=== PATIENT | female | born 1935 | race Caucasian/White ===

== ENCOUNTER → 2017-11-05 15:06 | Outpatient (CLI) | payer MEDICARE, BC, SELFPAY | PROVIDERS: Family Provider Family Medicine Geriatric Medicine; PCP Family Medicine Geriatric Medicine; Visit Provider Family Medicine Geriatric Medicine | DX: R69 Illness, unspecified (principal) | CPT/HCPCS: 87633 ==

== ENCOUNTER → 2017-11-28 14:37 | Outpatient (CLI) | payer MEDICARE, BC, SELFPAY ==
[2017-11-28 17:03] LABS: Absolute Lymphocyte Count 0.84 X10^3/ul (0.83-4.51); Absolute Neutrophil Count 5.7 X10^3/uL (2.0-7.7); Basophil# 0.07 X10^3/uL; Basophil% 0.9 % (0-1); Eosinophil# 0.42 X10^3/uL; Eosinophils% 5.2 % (0-5); Hematocrit 33.2 % (37-47); Hemoglobin 10.6 g/dl (12.0-15.0); Lymphocyte # 0.84 X10^3/ul (4.0); Lymphocyte % 10.4 % (19-41); Mean Corp Hgb Conc 31.9 g/gl (32-36); Mean Platelet Vol. 10.8 fl (6.2-12.0); Monocyte# 0.87 X10^3/uL; Monocyte% 10.8 % (0-10); Neutrophil # 5.66 X10^3/uL (2.7-7.7); Neutrophil % 70.1 % (47-70); POSITIVE COUNT YES; POSITIVE DIFFERENTIAL NO; POSITIVE MORPHOLOGY YES; Platelet Count 428 K/mm3 (150-450); RBC Distribution Width CV 14.7 % (11.6-14.6); RBC Distribution Width SD 47.1 fl (35.1-43.9); Red Blood Count 3.65 M/mm3 (4.2-5.4); White Blood Count 8.1 K/mm3 (4.4-11.0)
[2017-11-28 17:33] LABS: ALB/GLOB Ratio 0.8 RATIO (0.9-2.4); AST(SGOT) 21 U/L (15-37); Alanine Aminotransfer ALT/SGPT 24 U/L (13-56); Alkaline Phosphatase 53 U/L (45-117); Anion Gap 8 (5-15); BUN 23 mg/dL (7-18); BUN/Creat Ratio 15.9 RATIO (10-20); Calcium,Total 9.3 mg/dL (8.5-10.1); Chloride 107 mmol/L (98-107); Creatinine, Serum 1.45 mg/dL (0.55-1.02); EST Glomerular Filtration Rate 37 mL/min (>60); Est Glom Filt Rate - Afr Amer 44 mL/min (>60); Globulin 3.9 g/dL (2.2-4.2); Glucose 112 mg/dL (74-106); Potassium 3.7 mmol/L (3.5-5.1); Protein, Total 6.9 g/dL (6.4-8.2); Sodium Level 142 mmol/L (136-145); Thyroid Stim Hormone (TSH) 1.19 uIU/mL (0.358-3.74)
[2017-11-28 17:55] LABS: Vitamin D,25 Hydroxy 29.4 ng/mL (29.95-100.01)
[2017-11-29 12:37] LABS: Pathologist Review Reviewed
== END ==
PROVIDERS: Family Provider Family Medicine Geriatric Medicine; PCP Family Medicine Geriatric Medicine; Visit Provider Family Medicine Geriatric Medicine
DX: I10 Essential (primary) hypertension (principal); E55.9 Vitamin D deficiency, unspecified
CPT/HCPCS: 36415; 80053; 82306; 84443; 85025

== ENCOUNTER → 2017-12-05 11:25 | Outpatient (CLI) | payer MEDICARE, BC, SELFPAY ==
[2017-12-05 13:31] LABS: Iron 47 ug/dL (50-170); Iron Binding Capacity,Total 382 ug/dL (250-450)
== END ==
PROVIDERS: Family Provider Family Medicine Geriatric Medicine; PCP Family Medicine Geriatric Medicine; Visit Provider Family Medicine Geriatric Medicine
DX: D64.9 Anemia, unspecified (principal)
CPT/HCPCS: 36415; 83540; 83550

== ENCOUNTER → 2017-12-28 11:19 | Outpatient (CLI) | payer MEDICARE, BC, SELFPAY ==
--- NOTE | 2017-12-28 11:19 | DT_ITS ---
This patient was seen during an EMR downtime December 24, 2017 - December 31, 2017. This patient may have a combination of paper and electronic documentation or all paper documentation. All documentation is viewable within the e-chart portion of [employer] for each patient visit.
[2017-12-28 15:07] LABS: White Blood Count 6.2 K/mm3 (4.4-11.0)
[2017-12-28 15:08] LABS: Absolute Lymphocyte Count 1.15 X10^3/ul (0.83-4.51); Absolute Neutrophil Count 4.1 X10^3/uL (2.0-7.7); Basophil# 0.04 X10^3/uL; Basophil% 0.6 % (0-1); Eosinophil# 0.17 X10^3/uL; Eosinophils% 2.7 % (0-5); Hematocrit 37.3 % (37-47); Hemoglobin 11.9 g/dl (12.0-15.0); Lymphocyte # 1.15 X10^3/ul (4.0); Lymphocyte % 18.4 % (19-41); Mean Corp Hgb Conc 31.9 g/gl (32-36); Mean Corpuscular Hgb 30.3 pg (27.0-32.0); Mean Corpuscular Volume 94.9 fL (81-99); Mean Platelet Vol. 11.3 fl (6.2-12.0); Monocyte# 0.74 X10^3/uL; Monocyte% 11.9 % (0-10); Neutrophil % 65.8 % (47-70); POSITIVE COUNT NO; POSITIVE DIFFERENTIAL NO; POSITIVE MORPHOLOGY NO; Platelet Count 265 K/mm3 (150-450); RBC Distribution Width SD 53.8 fl (35.1-43.9); Red Blood Count 3.93 M/mm3 (4.2-5.4)
[2017-12-28 15:40] LABS: Iron 109 ug/dL (50-170); Iron Binding Capacity,Total 406 ug/dL (250-450)
== END ==
PROVIDERS: Family Provider Family Medicine Geriatric Medicine; PCP Family Medicine Geriatric Medicine; Visit Provider Family Medicine Geriatric Medicine
DX: D50.9 Iron deficiency anemia, unspecified (principal)
CPT/HCPCS: 36415; 83540; 83550; 85025

== ENCOUNTER → 2017-12-31 16:23 | Outpatient (CLI) | payer MEDICARE, BC, SELFPAY ==
--- NOTE | 2017-12-31 12:30 | COLBX_PTH ---
PATIENT: TANMAY AGUILLON [facility] U#:[id number] AGE/SX: 89/F ROOM: RE12/31/[address]: Dr. Beck Lawrence MD : 1935 BED: DIS: SPEC #: [id number] RECD: 12/31/17 15:24 STATUS: JW JANEL #: [id number] NAOMIE: 12/31/17 12:[address]: Beck Lawrence DEPT: SURGICAL PATHOLOGY RECD BY: Eduin Mata ENTERED: 01/01/18 08:16 SP TYPE: COLON BX OTHR DR: Dr. Matheus Morales MD [facility] Tissues: A - Right colon B - Descending colon Procedures: Surgery Specimen Level IV HEADER OPERATION: Colonoscopy with biopsies PRE-OP DIAGNOSIS: Iron deficiency anemia, history of polyps TISSUE SUBMITTED: A ? Right colon biopsy, rule out adenoma, B ? Descending colon biopsy, rule out adenoma MICROSCOPIC DIAGNOSIS A. Right colon, biopsy: Tubular adenoma. B. Descending colon, biopsy: Fragments of tubular adenoma. HERMINIO:abby 01/02/18 MICROSCOPIC DESCRIPTION Slides are reviewed. GROSS DESCRIPTION A - Received in fixative is one container labeled with the patient's name and designated right colon biopsy. The specimen consists of two irregular fragments of light santoyo soft tissue that in aggregate measure 0.3 x 0.3 x 0.1 cm. The specimen is totally submitted in one cassette. B - Received in fixative is one container labeled with the patient's name and designated descending colon biopsy. The specimen consists of multiple irregular fragments of light santoyo soft tissue that in aggregate measure 0.6 x 0.2 x 0.1 cm. The specimen is totally submitted in one cassette. / HERMINIO:abby 01/01/18 TC:1 CPT: 24087 x2
--- NOTE | 2017-12-31 16:23 | DT_ITS ---
This patient was seen during an EMR downtime December 24, 2017 - December 31, 2017. This patient may have a combination of paper and electronic documentation or all paper documentation. All documentation is viewable within the e-chart portion of [employer] for each patient visit.
== END ==
PROVIDERS: Family Provider Family Medicine Geriatric Medicine; PCP Family Medicine Geriatric Medicine; Visit Provider Internal Medicine Gastroenterology
DX: D50.9 Iron deficiency anemia, unspecified (principal); Z86.010 Personal history of colon polyps
CPT/HCPCS: 88305

== ENCOUNTER → 2018-05-23 11:09 | Outpatient (CLI) | payer MEDICARE, BC, SELFPAY ==
[2018-05-23 12:43] LABS: Absolute Lymphocyte Count 0.72 X10^3/ul (0.83-4.51); Basophil# 0.03 X10^3/uL; Basophil% 0.5 % (0-1); Eosinophil# 0.12 X10^3/uL; Eosinophils% 2.2 % (0-5); Hematocrit 37.7 % (37-47); Hemoglobin 12.3 g/dl (12.0-15.0); Lymphocyte # 0.72 X10^3/ul (4.0); Mean Corp Hgb Conc 32.6 g/gl (32-36); Mean Corpuscular Hgb 31.3 pg (27.0-32.0); Mean Corpuscular Volume 95.9 fL (81-99); Mean Platelet Vol. 11.5 fl (6.2-12.0); Monocyte% 10.8 % (0-10); Neutrophil # 4.04 X10^3/uL (2.7-7.7); Platelet Count 274 K/mm3 (150-450); RBC Distribution Width CV 13.8 % (11.6-14.6); RBC Distribution Width SD 47.1 fl (35.1-43.9); Red Blood Count 3.93 M/mm3 (4.2-5.4); White Blood Count 5.5 K/mm3 (4.4-11.0)
[2018-05-23 12:45] LABS: POSITIVE COUNT NO; POSITIVE DIFFERENTIAL NO; POSITIVE MORPHOLOGY NO
[2018-05-23 13:02] LABS: ALB/GLOB Ratio 1.1 RATIO (0.9-2.4); AST(SGOT) 18 U/L (15-37); Alanine Aminotransfer ALT/SGPT 27 U/L (13-56); Albumin, Serum 3.4 g/dL (3.2-5.0); Alkaline Phosphatase 41 U/L (45-117); Anion Gap 8 (5-15); BUN 27 mg/dL (7-18); BUN/Creat Ratio 20.9 RATIO (10-20); Calcium,Total 8.8 mg/dL (8.5-10.1); Chloride 108 mmol/L (98-107); Cholesterol 201 mg/dL (200); Creatinine, Serum 1.29 mg/dL (0.55-1.02); EST Glomerular Filtration Rate 42 mL/min (>60); Est Glom Filt Rate - Afr Amer 51 mL/min (>60); Globulin 3.2 g/dL (2.2-4.2); Glucose 78 mg/dL (74-106); High Density Lipoprotein 65 mg/dL; Potassium 3.8 mmol/L (3.5-5.1); Protein, Total 6.6 g/dL (6.4-8.2); Sodium Level 145 mmol/L (136-145); Thyroid Stim Hormone (TSH) 1.09 uIU/mL (0.358-3.74); Triglycerides 138 mg/dL; Very Low Density Lipoprotein 28 mg/dL (5-40)
[2018-05-23 13:03] LABS: Vitamin D,25 Hydroxy 24.6 ng/mL (29.95-100.01)
== END ==
PROVIDERS: Family Provider Family Medicine Geriatric Medicine; PCP Family Medicine Geriatric Medicine; Visit Provider Family Medicine Geriatric Medicine
DX: I10 Essential (primary) hypertension (principal); E78.49 Other hyperlipidemia; E55.9 Vitamin D deficiency, unspecified
CPT/HCPCS: 36415; 80053; 80061; 82306; 84443; 85025

== ENCOUNTER → 2018-06-21 11:06 | Outpatient (CLI) | payer MEDICARE, BC, SELFPAY ==
[2018-06-21 12:24] LABS: Absolute Lymphocyte Count 0.99 X10^3/ul (0.83-4.51); Absolute Neutrophil Count 3.1 X10^3/uL (2.0-7.7); Basophil# 0.03 X10^3/uL; Basophil% 0.6 % (0-1); Eosinophil# 0.13 X10^3/uL; Eosinophils% 2.7 % (0-5); Hematocrit 36.1 % (37-47); Hemoglobin 11.9 g/dl (12.0-15.0); Lymphocyte # 0.99 X10^3/ul (4.0); Lymphocyte % 20.3 % (19-41); Mean Corpuscular Hgb 31.2 pg (27.0-32.0); Mean Corpuscular Volume 94.8 fL (81-99); Mean Platelet Vol. 11.9 fl (6.2-12.0); Monocyte% 12.3 % (0-10); Neutrophil % 63.5 % (47-70); Platelet Count 263 K/mm3 (150-450); RBC Distribution Width CV 13.4 % (11.6-14.6); RBC Distribution Width SD 44.8 fl (35.1-43.9); Red Blood Count 3.81 M/mm3 (4.2-5.4); White Blood Count 4.9 K/mm3 (4.4-11.0)
[2018-06-21 12:28] LABS: POSITIVE COUNT NO; POSITIVE DIFFERENTIAL NO; POSITIVE MORPHOLOGY NO
[2018-06-21 12:32] LABS: Vitamin D,25 Hydroxy 30.4 ng/mL (29.95-100.01)
[2018-06-21 12:39] LABS: ALB/GLOB Ratio 1.2 RATIO (0.9-2.4); AST(SGOT) 16 U/L (15-37); Alanine Aminotransfer ALT/SGPT 18 U/L (13-56); Albumin, Serum 3.4 g/dL (3.2-5.0); Alkaline Phosphatase 38 U/L (45-117); Anion Gap 8 (5-15); BUN 29 mg/dL (7-18); BUN/Creat Ratio 22.1 RATIO (10-20); Calcium,Total 8.9 mg/dL (8.5-10.1); Chloride 107 mmol/L (98-107); Creatinine, Serum 1.31 mg/dL (0.55-1.02); EST Glomerular Filtration Rate 41 mL/min (>60); Est Glom Filt Rate - Afr Amer 50 mL/min (>60); Globulin 2.8 g/dL (2.2-4.2); Glucose 91 mg/dL (74-106); Potassium 3.9 mmol/L (3.5-5.1); Protein, Total 6.2 g/dL (6.4-8.2); Sodium Level 142 mmol/L (136-145); Thyroid Stim Hormone (TSH) 1.44 uIU/mL (0.358-3.74)
--- OUTSIDE RECORDS SUMMARY | 2018-08-16 09:09 | XMS RPT_ITS ---
:1935 Author Organization OHIP Care Team Providers Name Role Phone Andrew, Matheus Chi Attending Unavailable Andrew, Matheus Chi Primary Care Unavailable Andrew, Matheus Chi Attending Unavailable Andrew, Matheus Chi Primary Care Unavailable Andrew, Matheus Chi Attending Unavailable Andrew, Matheus Chi Primary Care Unavailable Andrew, Matheus Chi Attending Unavailable Andrew, Matheus Chi Primary Care Unavailable Andrew, Matheus Chi Attending Unavailable Andrew, Matheus Chi Referring Unavailable Andrew, Matheus Chi Primary Care Unavailable Beck Lawrence Attending Unavailable Andrew, Matheus Chi Primary Care Unavailable Beck Lawrence Referring Unavailable Andrew, Matheus Chi Attending Unavailable Andrew, Matheus Chi Primary Care Unavailable Andrew, Matheus Chi Attending Unavailable Andrew, Matheus Chi Primary Care Unavailable Andrew, Matheus Chi Attending Unavailable Andrew, Matheus Chi Primary Care Unavailable PROBLEMS PROBLEMS DATE TYPE CONDITION / CODE ATTENDING STATUS SOURCE 01/16/2018 Unknown 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, 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 [facility], [facility], Hospital unspecified / Repository D50.9(ICD-10) PROCEDURES PROCEDURES No Procedure Records FoundRESULTS RESULTS CBC W/DIFF, AUTOMATED Collected: 06/21/2018 Status: F Source: [place] 11:10 AM [facility] REPOSITORY TYPE CODE TESTS RESULT OUT OF RANGE REFERENCE UNITS LAB L100.1000 4.4-11.0 K/mm3 Normal WBC 4.9 LAB L100.1200 4.2-5.4 M/mm3 Low RBC 3.81 LAB L100.1300 12.0-15.0 g/dl Low HGB 11.9 LAB L100.1400 37-47 % Low HCT 36.1 LAB L100.1500 81-99 fL Normal MCV 94.8 LAB L100.1600 27.0-32.0 pg Normal MCH 31.2 LAB L100.1700 32-36 g/gl Normal MCHC 33.0 LAB L100.1810 11.6-14.6 % Normal RDW CV 13.4 LAB L100.1820 35.1-43.9 fl High RDW SD 44.8 LAB L100.1900 150-450 K/mm3 Normal PLT 263 LAB L100.2000 6.2-12.0 fl Normal MPV 11.9 LAB L100.2100 47-70 % Normal NEUT% 63.5 LAB L100.2200 19-41 % Normal LY% 20.3 LAB L100.2300 0-10 % High MONO% 12.3 LAB L100.2400 0-5 % Normal EO% 2.7 LAB L100.2500 0-1 % Normal BASO% 0.6 LAB L100.2550 0.0-0.9 % Normal IM GRAN % 0.600 Result Comment: IG% - Immature Granulocytes (promyelocytes, myelocytes and metamyelocytes) > 1% indicates that a LEFT SHIFT is Present. LAB L100.2620 2.0-7.7 X10 3/uL Normal Absolute Neut 3.1 LAB L100.2720 0.83-4.51 X10 3/ul Normal Absolute Lymph 0.99 Performed By: #### L100.0100 #### [facility] [address] [place], [address] VITAMIN D,25 HYDROXY Collected: 06/21/2018 Status: F Source: [place] 11:10 AM [facility] REPOSITORY TYPE CODE TESTS RESULT OUT OF RANGE REFERENCE UNITS LAB L506.1000 29.95-100.01 ng/mL Normal Vitamin D 30.4 25-OH Result Comment: Vitamin D 25(OH) Status Range Deficiency <20 ng/mL (50nmol/L) Insuffciency 20 - 30 ng/mL (50 - 75 nmol/L) Sufficiency 30 - 100 ng/mL (75 - 250 nmol/L) Toxicity >100 ng/mL (>250 nmol/L) Performed By: #### L506.1000 #### [facility] [address] [facility] [place], [address] COMPREHENSIVE METABOLIC Collected: 06/21/2018 Status: F [facility] REPOSITORY TYPE CODE TESTS RESULT OUT OF RANGE REFERENCE UNITS LAB L501.0100 74-106 mg/dL Normal GLU 91 Result Comment: Please note revised GLUCOSE reference range effective 2017. LAB L501.1000 7-18 mg/dL High BUN 29 LAB L501.1100 0.55-1.02 mg/dL High CREAT,SERUM 1.31 Result Comment: The validity of the calculated GFR AND GFRAA in patients over 70 years has not been determined. Clinical correlation is essential. LAB L501.1110 >60 mL/min Low EST GFR 41 Result Comment: Non- GFR Calc LAB L501.1115 >60 mL/min Low EST GFR - AA 50 Result Comment: GFR Calc LAB L501.1300 10-20 RATIO High BUN/CRE 22.1 LAB L501.1500 6.4-8.2 g/dL Low T PROT 6.2 LAB L501.1800 3.2-5.0 g/dL Normal ALB 3.4 LAB L501.1950 2.2-4.2 g/dL Normal GLOB 2.8 LAB L501.2000 0.9-2.4 RATIO Normal A/G 1.2 LAB L501.2200 8.5-10.1 mg/dL CA Normal 8.9 LAB L501.4100 15-37 U/L Normal AST 16 LAB L501.4305 45-117 U/L Low ALK P 38 LAB L501.4405 13-56 U/L Normal ALT 18 LAB L501.4600 0.20-1.00 mg/dL T Normal BILI 0.40 LAB L501.5300 136-145 mmol/L NA Normal 142 LAB L501.5600 3.5-5.1 mmol/L K Normal 3.9 LAB L501.5900 98-107 mmol/L CL Normal 107 LAB L501.6100 21.0-32.0 mmol/L Normal CO2 27.0 LAB L501.6200 5-15 Normal GAP 8 Performed By: #### L500.4050, L501.9520 #### [facility] [address] [place], [place], [address] THYROID STIM HORMONE Collected: 06/21/2018 Status: F Source: [place] (TSH) 11:10 AM [facility] REPOSITORY TYPE CODE TESTS RESULT OUT OF RANGE REFERENCE UNITS LAB L501.9520 0.358-3.74 uIU/mL Normal TSH 1.44 Performed By: #### L500.4050, L501.9520 #### [facility] [address] [place], [address] CBC W/DIFF, AUTOMATED Collected: 05/23/2018 Status: F Source: [place] 11:10 AM [facility] REPOSITORY TYPE CODE TESTS RESULT OUT OF RANGE REFERENCE UNITS LAB L100.1000 4.4-11.0 K/mm3 Normal WBC 5.5 LAB L100.1200 4.2-5.4 M/mm3 Low RBC 3.93 LAB L100.1300 12.0-15.0 g/dl Normal HGB 12.3 LAB L100.1400 37-47 % Normal HCT 37.7 LAB L100.1500 81-99 fL Normal MCV 95.9 LAB L100.1600 27.0-32.0 pg Normal MCH 31.3 LAB L100.1700 32-36 g/gl Normal MCHC 32.6 LAB L100.1810 11.6-14.6 % Normal RDW CV 13.8 LAB L100.1820 35.1-43.9 fl High RDW SD 47.1 LAB L100.1900 150-450 K/mm3 Normal PLT 274 LAB L100.2000 6.2-12.0 fl Normal MPV 11.5 LAB L100.2100 47-70 % High NEUT% 73.0 LAB L100.2200 19-41 % Low LY% 13.0 LAB L100.2300 0-10 % High MONO% 10.8 LAB L100.2400 0-5 % Normal EO% 2.2 LAB L100.2500 0-1 % Normal BASO% 0.5 LAB L100.2550 0.0-0.9 % Normal IM GRAN % 0.500 Result Comment: IG% - Immature Granulocytes (promyelocytes, myelocytes and metamyelocytes) > 1% indicates that a LEFT SHIFT is Present. LAB L100.2620 2.0-7.7 X10 3/uL Normal Absolute Neut 4.0 LAB L100.2720 0.83-4.51 X10 3/ul Low Absolute Lymph 0.72 Performed By: #### L100.0100 #### [facility] [address] [place], [address] COMPREHENSIVE METABOLIC Collected: 05/23/2018 Status: F Source: [facility] 11:10 AM [facility] REPOSITORY TYPE CODE TESTS RESULT OUT OF RANGE REFERENCE UNITS LAB L501.0100 74-106 mg/dL Normal GLU 78 Result Comment: Please note revised GLUCOSE reference range effective 2017. LAB L501.1000 7-18 mg/dL High BUN 27 LAB L501.1100 0.55-1.02 mg/dL High CREAT,SERUM 1.29 Result Comment: The validity of the calculated GFR AND GFRAA in patients over 70 years has not been determined. Clinical correlation is essential. LAB L501.1110 >60 mL/min Low EST GFR 42 Result Comment: Non- GFR Calc LAB L501.1115 >60 mL/min Low EST GFR - AA 51 Result Comment: GFR Calc LAB L501.1300 10-20 RATIO High BUN/CRE 20.9 LAB L501.1500 6.4-8.2 g/dL T Normal PROT 6.6 LAB L501.1800 3.2-5.0 g/dL Normal ALB 3.4 LAB L501.1950 2.2-4.2 g/dL Normal GLOB 3.2 LAB L501.2000 0.9-2.4 RATIO Normal A/G 1.1 LAB L501.2200 8.5-10.1 mg/dL CA Normal 8.8 LAB L501.4100 15-37 U/L Normal AST 18 LAB L501.4305 45-117 U/L Low ALK P 41 LAB L501.4405 13-56 U/L Normal ALT 27 LAB L501.4600 0.20-1.00 mg/dL T Normal BILI 0.40 LAB L501.5300 136-145 mmol/L NA Normal 145 LAB L501.5600 3.5-5.1 mmol/L K Normal 3.8 LAB L501.5900 98-107 mmol/L High CL 108 LAB L501.6100 21.0-32.0 mmol/L Normal CO2 29.0 LAB L501.6200 5-15 Normal GAP 8 Performed By: #### L500.4050, L500.4100, L501.9520 #### [facility] [address] [place], [address] LIPID PROFILE Collected: 05/23/2018 Status: F Source: [place] 11:10 AM [facility] REPOSITORY TYPE CODE TESTS RESULT OUT OF RANGE REFERENCE UNITS LAB L501.4900 200 mg/dL High CHOL 201 Result Comment: <200 mg/dL Desirable 200-240 mg/dL Borderline >240 mg/dL High Risk LAB L501.5000 mg/dL Normal TRIG 138 Result Comment: The drugs N-Acetylcysteine and Metamizole may falsely depress this assay. Serum Triglycerides Reference Interval Normal <150 mg/dL Borderline high 150 - 199 mg/dL High 200 - 499 mg/dL Very High > or = 500 mg/dL LAB L501.6400 mg/dL Normal HDL 65 Result Comment: The drugs N-Acetylcysteine and Metamizole may falsely depress this assay. Reference Range HDL <40 mg/dL Low HDL Cholesterol HDL >or= 60 mg/dL High HDL Cholesterol LAB L501.6500 0-130 mg/dL Normal LDL 108 LAB L501.6600 5-40 mg/dL Normal VLDL 28 Performed By: #### L500.4050, L500.4100, L501.9520 #### [facility] [address] [place], [address] THYROID STIM HORMONE Collected: 05/23/2018 Status: F Source: [place] (TSH) 11:10 AM [facility] REPOSITORY TYPE CODE TESTS RESULT OUT OF RANGE REFERENCE UNITS LAB L501.9520 0.358-3.74 uIU/mL Normal TSH 1.09 Performed By: #### L500.4050, L500.4100, L501.9520 #### [facility] [address] [place], [address] VITAMIN D,25 HYDROXY Collected: 05/23/2018 Status: F Source: [place] 11:10 AM [facility] REPOSITORY TYPE CODE TESTS RESULT OUT OF REFERENCE UNITS RANGE LAB L506.1000 29.95-100.01 ng/mL Low Vitamin D 24.6 25-OH Result Comment: Vitamin D 25(OH) Status Range Deficiency <20 ng/mL (50nmol/L) Insuffciency 20 - 30 ng/mL (50 - 75 nmol/L) Sufficiency 30 - 100 ng/mL (75 - 250 nmol/L) Toxicity >100 ng/mL (>250 nmol/L) Performed By: #### L506.1000 #### [facility] [address] [place], [address] DOWNTIME REPORT Observed: 01/10/2018 Status: F Source: [place] 1:14 PM [facility] REPOSITORY [facility] Medical Records Department [address] [place] [address] Downtime Report MR#: [id number] Acct: [id number] Name: TANMAY AGUILLON Rep #: [id number] : 1935 82 From: Fabrice King PCP: Andrew HENRIQUEZ,Matheus Chi Status: REG CLI This patient was seen during an EMR downtime December 24, 2017 - December 31, 2017. This patient may have a combination of paper and electronic documentation or all paper documentation. All documentation is viewable within the e-chart portion of [employer] for each patient visit. DOWNTIME REPORT Observed: 01/10/2018 Status: F Source: [place] 1:13 PM [facility] REPOSITORY [facility] Medical Records Department [address] [place] [address] Downtime Report MR#: [id number] Acct: [id number] Name: TANMAY AGUILLON Rep #: [id number] : 1935 82 From: Fabrice King PCP: Andrew HENRIQUEZ,Matheus Chi Status: REG CLI This patient was seen during an EMR downtime December 24, 2017 - December 31, 2017. This patient may have a combination of paper and electronic documentation or all paper documentation. All documentation is viewable within the e-chart portion of [employer] for each patient visit. COLON BIOPSY (CHOOSE Observed: 12/31/2017 Status: F Source: [facility]) 12:30 PM [facility] REPOSITORY Patient: TANMAY AGUILLON : 1935 (82/F) Acct Num: [id number] Phys: Beck Lawrence Unit Num: [id number] Loc: LABSPEC Specimen: [id number] Received: 12/31/17 - 1524 Spec Type: COLON BX TISSUES TISSUES: A. Right colon B. Descending colon GROSS DESCRIPTION A - Received in fixative is one container labeled with the patient's name and designated right colon biopsy. The specimen consists of two irregular fragments of light santoyo soft tissue that in aggregate measure 0.3 x 0.3 x 0.1 cm. The specimen is totally submitted in one cassette. B - Received in fixative is one container labeled with the patient's name and designated descending colon biopsy. The specimen consists of multiple irregular fragments of light santoyo soft tissue that in aggregate measure 0.6 x 0.2 x 0.1 cm. The specimen is totally submitted in one cassette. / HERMINIO:abby 01/01/18 TC:1 CPT: 28352 x2 HEADER OPERATION: Colonoscopy with biopsies PRE-OP DIAGNOSIS: Iron deficiency anemia, history of polyps TISSUE SUBMITTED: A Right colon biopsy, rule out adenoma, B Descending colon biopsy, rule out adenoma MICROSCOPIC DESCRIPTION Slides are reviewed. MICROSCOPIC DIAGNOSIS A. Right colon, biopsy: Tubular adenoma. B. Descending colon, biopsy: Fragments of tubular adenoma. SJ:abby 01/02/18 Signed Srikanth Taylor 01/02/18 <signature on file> Performed By: #### PCOLBX #### [facility] [address] [place], [address] CBC W/DIFF, AUTOMATED Collected: 12/28/2017 Status: F Source: [place] 11:24 AM [facility] REPOSITORY TYPE CODE TESTS RESULT OUT OF RANGE REFERENCE UNITS LAB L100.1000 4.4-11.0 K/mm3 Normal WBC 6.2 LAB L100.1200 4.2-5.4 M/mm3 Low RBC 3.93 LAB L100.1300 12.0-15.0 g/dl Low HGB 11.9 LAB L100.1400 37-47 % Normal HCT 37.3 LAB L100.1500 81-99 fL Normal MCV 94.9 LAB L100.1600 27.0-32.0 pg Normal MCH 30.3 LAB L100.1700 32-36 g/gl Low MCHC 31.9 LAB L100.1810 11.6-14.6 % High RDW CV 16.0 LAB L100.1820 35.1-43.9 fl High RDW SD 53.8 LAB L100.1900 150-450 K/mm3 Normal PLT 265 LAB L100.2000 6.2-12.0 fl Normal MPV 11.3 LAB L100.2100 47-70 % Normal NEUT% 65.8 LAB L100.2200 19-41 % Low LY% 18.4 LAB L100.2300 0-10 % High MONO% 11.9 LAB L100.2400 0-5 % Normal EO% 2.7 LAB L100.2500 0-1 % Normal BASO% 0.6 LAB L100.2550 0.0-0.9 % Normal IM GRAN % 0.600 Result Comment: IG% - Immature Granulocytes (promyelocytes, myelocytes and metamyelocytes) > 1% indicates that a LEFT SHIFT is Present. LAB L100.2620 2.0-7.7 X10 3/uL Normal Absolute Neut 4.1 LAB L100.2720 0.83-4.51 X10 3/ul Normal Absolute Lymph 1.15 Performed By: #### L100.0100 #### [facility] [address] [place], [address] IRON BINDING Collected: 12/28/2017 Status: F [facility] REPOSITORY TYPE CODE TESTS RESULT OUT OF RANGE REFERENCE UNITS LAB L503.6075 250-450 ug/dL Normal TIBC 406 Performed By: #### L503.6075, L503.6150 #### [facility] [address] [place], [address] IRON Collected: 12/28/2017 Status: F Source: [place] 11:24 AM [facility] REPOSITORY TYPE CODE TESTS RESULT OUT OF RANGE REFERENCE UNITS LAB L503.6150 50-170 ug/dL Normal IRON 109 Performed By: #### L503.6075, L503.6150 #### [facility] [address] [place], [address] IRON BINDING Collected: 12/05/2017 Status: F Source: [place] [facility] 11:27 AM [facility] REPOSITORY TYPE CODE TESTS RESULT OUT OF RANGE REFERENCE UNITS LAB L503.6075 250-450 ug/dL Normal TIBC 382 Performed By: #### L503.6075, L503.6150 #### [facility] [address] [place], [address] IRON Collected: 12/05/2017 Status: F Source: [place] 11:27 AM [facility] REPOSITORY TYPE CODE TESTS RESULT OUT OF RANGE REFERENCE UNITS LAB L503.6150 50-170 ug/dL Low IRON 47 Performed By: #### L503.6075, L503.6150 #### [facility] [address] [place], [address] CBC W/DIFF, AUTOMATED Collected: 11/28/2017 Status: C Source: [facility] 2:39 [facility] TYPE CODE TESTS RESULT OUT OF RANGE REFERENCE UNITS LAB L100.1000 4.4-11.0 K/mm3 Normal WBC 8.1 LAB L100.1200 4.2-5.4 M/mm3 Low RBC 3.65 LAB L100.1300 12.0-15.0 g/dl Low HGB 10.6 LAB L100.1400 37-47 % Low HCT 33.2 LAB L100.1500 81-99 fL Normal MCV 91.0 LAB L100.1600 27.0-32.0 pg Normal MCH 29.0 LAB L100.1700 32-36 g/gl Low MCHC 31.9 LAB L100.1810 11.6-14.6 % High RDW CV 14.7 LAB L100.1820 35.1-43.9 fl High RDW SD 47.1 LAB L100.1900 150-450 K/mm3 Normal PLT 428 LAB L100.2000 6.2-12.0 fl Normal MPV 10.8 LAB L100.2100 47-70 % High NEUT% 70.1 LAB L100.2200 19-41 % Low LY% 10.4 LAB L100.2300 0-10 % High MONO% 10.8 LAB L100.2400 0-5 % High EO% 5.2 LAB L100.2500 0-1 % Normal BASO% 0.9 LAB L100.2550 0.0-0.9 % High IM GRAN % 2.600 Result Comment: IG% - Immature Granulocytes (promyelocytes, myelocytes and metamyelocytes) > 1% indicates that a LEFT SHIFT is Present. LAB L100.2620 2.0-7.7 X10 3/uL Normal Absolute Neut 5.7 LAB L100.2720 0.83-4.51 X10 3/ul Normal Absolute Lymph 0.84 LAB L100.9900 Normal PATH REV Reviewed Result Comment: Normocytic anemia. Clinical correlation suggested. Walter Olivier D.O. 11/29/17 AMENDED REPORT 11/29/17 1236 PATH REV previously reported as: November zoya Performed By: #### L100.0100 #### [facility] [address] [place], [address] COMPREHENSIVE METABOLIC Collected: 11/28/2017 Status: F Source: [place] BHATTI 2:39 PM [facility] REPOSITORY TYPE CODE TESTS RESULT OUT OF RANGE REFERENCE UNITS LAB L501.0100 74-106 mg/dL High GLU 112 Result Comment: Fasting Glucose result from 100 to 125 mg/dL suggests IMPAIRED HOMEOSTASIS per A.D.A. criteria. Please note revised GLUCOSE reference range effective 2017. LAB L501.1000 7-18 mg/dL High BUN 23 LAB L501.1100 0.55-1.02 mg/dL High CREAT,SERUM 1.45 Result Comment: The validity of the calculated GFR AND GFRAA in patients over 70 years has not been determined. Clinical correlation is essential. LAB L501.1110 >60 mL/min Low EST GFR 37 Result Comment: Non- GFR Calc LAB L501.1115 >60 mL/min Low EST GFR - AA 44 Result Comment: GFR Calc LAB L501.1300 10-20 RATIO Normal BUN/CRE 15.9 LAB L501.1500 6.4-8.2 g/dL T Normal PROT 6.9 LAB L501.1800 3.2-5.0 g/dL Low ALB 3.0 LAB L501.1950 2.2-4.2 g/dL Normal GLOB 3.9 LAB L501.2000 0.9-2.4 RATIO Low A/G 0.8 LAB L501.2200 8.5-10.1 mg/dL CA Normal 9.3 LAB L501.4100 15-37 U/L Normal AST 21 LAB L501.4305 45-117 U/L Normal ALK P 53 LAB L501.4405 13-56 U/L Normal ALT 24 LAB L501.4600 0.20-1.00 mg/dL T Normal BILI 0.30 LAB L501.5300 136-145 mmol/L NA Normal 142 LAB L501.5600 3.5-5.1 mmol/L K Normal 3.7 LAB L501.5900 98-107 mmol/L CL Normal 107 LAB L501.6100 21.0-32.0 mmol/L Normal CO2 27.0 LAB L501.6200 5-15 Normal GAP 8 Performed By: #### L500.4050, L501.9520 #### [facility] [address] [place], [place], [address] THYROID STIM HORMONE Collected: 11/28/2017 Status: F Source: [place] (TSH) 2:39 PM [facility] REPOSITORY TYPE CODE TESTS RESULT OUT OF RANGE REFERENCE UNITS LAB L501.9520 0.358-3.74 uIU/mL Normal TSH 1.19 Performed By: #### L500.4050, L501.9520 #### [facility] [address] [place], [address] VITAMIN D,25 HYDROXY Collected: 11/28/2017 Status: F Source: [place] 2:39 PM [facility] REPOSITORY TYPE CODE TESTS RESULT OUT OF REFERENCE UNITS RANGE LAB L506.1000 29.95-100.01 ng/mL Low Vitamin D 29.4 25-OH Result Comment: Vitamin D 25(OH) Status Range Deficiency <20 ng/mL (50nmol/L) Insuffciency 20 - 30 ng/mL (50 - 75 nmol/L) Sufficiency 30 - 100 ng/mL (75 - 250 nmol/L) Toxicity >100 ng/mL (>250 nmol/L) Performed By: #### L506.1000 #### [facility] [address] [place], [address] Observed: 11/05/2017 Status: F Source: [place] RESPIRATORY PANEL 3:26 PM [facility] MOLECULAR REPOSITORY RP PANEL ADENOVIRUS Not Detected HUMAN METAPHNEUMO Not Detected INFLUENZA A Not Detected INFLUENZA A (SUBTYPE H1) Not Detected INFLUENZA A (SUBTYPE H3) Not Detected INFLUENZA B Not Detected PARAINFLUENZA 1 Not Detected PARAINFLUENZA 2 Not Detected PARAINFLUENZA 3 Not Detected PARAINFLUENZA 4 Not Detected RHINOVIRUS Not Detected RSV A Not Detected RSV B Not Detected NAAT METHOD Testing was performed using nucleic acid amplification Performed By: #### M100.638 #### [facility] [address] [place], [address] Observed: 08/13/2017 Status: F Source: [place] RESPIRATORY PANEL 3:50 PM [facility] MOLECULAR REPOSITORY RP PANEL Normal Reference Range = Not Detected ADENOVIRUS Not Detected HUMAN METAPHNEUMO Positive for HUMAN METAPHNEUMO VIRUS by NAAT technology INFLUENZA A Not Detected INFLUENZA A (SUBTYPE H1) Not Detected INFLUENZA A (SUBTYPE H3) Not Detected INFLUENZA B Not Detected PARAINFLUENZA 1 Not Detected PARAINFLUENZA 2 Not Detected PARAINFLUENZA 3 Not Detected PARAINFLUENZA 4 Not Detected RHINOVIRUS Not Detected RSV A Not Detected RSV B Not Detected NAAT METHOD Testing was performed using nucleic acid amplification ORGANISM 1: HUMAN META Performed By: #### M100.638 #### [facility] [address] [place], [address] ALLERGIES ALLERGIES DATE TYPE / CODE NAME / CODE REACTION SEVERITY SOURCE 07/20/2013 Drug No Known Unknown [facility] Allergy/4160 Allergies/F00 Hospital 03352(SNOMED 8338492(RXNOR Repository CT) M) ENCOUNTERS ENCOUNTERS ADMIT/DISCHARGE ACCOUNT ADMITTING ENCOUNTER LOCATION SOURCE NUMBER CLASS 06/21/[id number] [facility] 6 [facility] ing:POLAB3 Repository 05/23/[id number] [facility] 2 [facility] ing:POLAB3 Repository 01/01/[id number] [facility] 3 [facility] ing:LAB.FUTUR Repository E 12/31/[id number] [facility] 3 [facility] ing:LABSPEC Repository 12/28/[id number] [facility] 8 [facility] ing:LAB Repository 12/05/[id number] [facility] 7 [facility] ing:POLAB3 Repository 11/28/2017 [id number] [place] 9 [facility] ing:POLAB3 Repository 11/05/[id number] [facility] 3 [facility] ing:PSN Repository 08/13/2017 [id number] Ambulatory [place] 0 [facility] ing:PSN Repository PAYERS PAYERS ENCOUNTER GUARANTOR PAYER SUBSCRIBER SOURCE 06/21/2018 Keisha Marss54 Insurance:MEDICARE PINNICKSDOB[facility] PART [facility] [place]Policy [id number] Number: Repository [address]Tjm: ([phone] [id number] [phone] () Date:2018-06-21 06/21/2018 Secondary Keisha W [place] Insurance:ANTHEMPolic PinnicksDOB: Community y Number: [id number] [id number] Repository Date:6727-88-18[address] [place] [address]BK: 06/21/2018 Tertiary NOT GIVENUNK [place] Insurance:SELF PAY [facility] Number: Effective Repository Date:2018-06-21 05/23/2018 Keisha W Primary TANMAY M [place] [id number] Insurance:MEDICARE PINNICKSDOB: Community [place] PART A [facility] 2021[place] Number: Repository [id number]: 330 [id number] [phone] () Date:2018-05-16 05/23/2018 Secondary Keisha W [place] Insurance:ANTHEMPolic PinnicksDOB: Community y Number: [id number] [facility] [id number] Repository Date:3468-20-92[address], [place] [address]BU: 05/23/2018 Tertiary NOT GIVENUNK [place] Insurance:SELF PAY [facility] Number: Effective Repository Date:2018-05-16 01/01/2018 Keisha W Primary TANMAY M [place] [id number] Insurance:MEDICARE PINNICKSDOB: Community [place] [address] PART A [facility] [id number] Number: Repository [id number]: 330 [id number] [phone] () Date:2018-01-01 01/01/2018 Secondary Keisha W [place] Insurance:ANTHEMPolic PinnicksDOB: Community y Number: [id number] [id number] Repository Date:2959-58-28[address], [place] [address]ES: 01/01/2018 Tertiary NOT GIVENUNK [place] Insurance:SELF PAY Community [facility] Number: Effective Repository Date:2018-01-01 12/31/2017 Keisha W Primary TANMAY Boyle Deon [id number] Insurance:MEDICARE PINNICKSDOB: Community [address] [facility] [id number] Number: Repository [id number]: [id number] [phone] (HP) Date:2017-12-31 12/31/2017 Secondary Keisha W Deon Insurance:ANTHEMPolic PinnicksDOB: Community y Number: [id number] [id number] Repository Date:[id number] [place] [id number]: 12/31/2017 Tertiary NOT GIVENUNK Deon Insurance:SELF PAY [facility] Number: Effective Repository Date:2017-12-31 12/28/2017 Keisha W Primary TANMAY M Deon [id number] Insurance:MEDICARE PINNICKSDOB: Community [address] A [facility] [id number] [place] Number: Repository [id number]: [phone] [id number] [phone] (HP) Date:2017-12-28 12/28/2017 Secondary Keisha Campos [place] Insurance:ANTHEMPolic PinnicksDOB: Community y Number: [id number] [id number] Repository Date:0812-45-10[address], [place] [address]SY: 12/28/2017 Tertiary NOT GIVENUNK [place] Insurance:SELF PAY [facility] Number: Effective Repository Date:2017-12-28 12/05/2017 Keisha W Primary TANMAY M [place] [id number] Insurance:MEDICARE PINNICKSDOB: Community [place] [address] PART A [facility] [id number] Number: Repository [id number]: [phone] [id number] [phone] (HP) Date:2017-12-04 12/05/2017 Secondary Keisha W [place] Insurance:ANTHEMPolic PinnicksDOB: Community y Number: [id number] [facility] [id number] Repository Date:[id number], [place] [address]EV: 12/05/2017 Tertiary NOT GIVENUNK [place] Insurance:SELF PAY [facility] Number: Effective Repository Date:2017-12-04 11/28/2017 Keisha Campos Primary TANMAY [place] [id number] Insurance:MEDICARE PINNICKSDOB: Community [place] [address] PART A [facility] [id number] Number: Repository [id number]: [phone] [id number] [phone] (HP) Date:2017-11-28 11/28/2017 Secondary Keisha Campos [place] Insurance:ANTHEMPolic PinnicksDOB: Community y Number: [id number] [facility] [id number] Repository Date:2880-24-03[address], [place] [address]PL: 11/28/2017 Tertiary NOT GIVENUNK [place] Insurance:SELF PAY [facility] Number: Effective Repository Date:2017-11-28 11/05/2017 Keisha W Primary TANMAY [place]le [place] [id number] Insurance:MEDICARE PINNICKSDOB: Community [place] [address] PART A [facility] [id number] Number: Repository [id number]: [phone] [id number] [phone] () Date:2017-11-05 11/05/2017 Secondary Keisha Campos [place] Insurance:ANTHEMPolic PinnicksDOB: Community y Number: [id number] [facility] [id number] Repository Date:[id number], [place] [address]KO: 11/05/2017 Tertiary NOT GIVENUNK [place] Insurance:SELF PAY [facility] Number: Effective Repository Date:2017-11-05 08/13/2017 Keisha W Primary TANMAY M [place] [id number] Insurance:MEDICARE PINNICKSDOB: Community [place] [address] PART A [facility] [id number] Number: Repository [id number]: [id number] [phone] Date:2017-08-13 2 (HP) 08/13/2017 Secondary Keisha Varela Insurance:ANTHEMPolic PindavissDOB: Community y Number: [id number] Hospital [id number] Repository Date:[id number], [place] [address]MJ: 08/13/2017 Tertiary NOT GIVENUNK [place] Insurance:SELF PAY [facility] Number: Effective Repository Date:2017-08-13
== END ==
PROVIDERS: Family Provider Family Medicine Geriatric Medicine; PCP Family Medicine Geriatric Medicine; Visit Provider Family Medicine Geriatric Medicine
DX: I10 Essential (primary) hypertension (principal); E55.9 Vitamin D deficiency, unspecified
CPT/HCPCS: 36415; 80053; 82306; 84443; 85025

== ENCOUNTER → 2018-10-01 11:00 | Outpatient (CLI) | payer MEDICARE, BC, SELFPAY ==
[2018-10-01 11:55] LABS: Absolute Lymphocyte Count 0.83 X10^3/ul (0.83-4.51); Absolute Neutrophil Count 5.1 X10^3/uL (2.0-7.7); Basophil# 0.03 X10^3/uL; Basophil% 0.5 % (0-1); Eosinophil# 0.12 X10^3/uL; Eosinophils% 1.8 % (0-5); Hematocrit 39.1 % (37-47); Hemoglobin 12.4 g/dl (12.0-15.0); Lymphocyte # 0.83 X10^3/ul (4.0); Lymphocyte % 12.5 % (19-41); Mean Corp Hgb Conc 31.7 g/gl (32-36); Mean Corpuscular Hgb 30.7 pg (27.0-32.0); Mean Corpuscular Volume 96.8 fL (81-99); Mean Platelet Vol. 11.2 fl (6.2-12.0); Monocyte# 0.57 X10^3/uL; Monocyte% 8.6 % (0-10); Neutrophil # 5.05 X10^3/uL (2.7-7.7); Neutrophil % 76.1 % (47-70); POSITIVE COUNT NO; POSITIVE DIFFERENTIAL NO; POSITIVE MORPHOLOGY NO; Platelet Count 256 K/mm3 (150-450); RBC Distribution Width CV 13.3 % (11.6-14.6); RBC Distribution Width SD 45.7 fl (35.1-43.9); Red Blood Count 4.04 M/mm3 (4.2-5.4); White Blood Count 6.6 K/mm3 (4.4-11.0)
[2018-10-01 12:32] LABS: Ferritin 435 ng/mL (8-252); Iron 117 ug/dL (50-170); Iron Binding Capacity,Total 382 ug/dL (250-450)
== END ==
PROVIDERS: Family Provider Family Medicine Geriatric Medicine; PCP Family Medicine Geriatric Medicine; Referring Provider Family Medicine Geriatric Medicine; Visit Provider Family Medicine Geriatric Medicine
DX: D64.9 Anemia, unspecified (principal)
CPT/HCPCS: 36415; 82728; 83540; 83550; 85025

== ENCOUNTER → 2018-12-24 12:07 | Outpatient (CLI) | payer MEDICARE, BC, SELFPAY ==
[2018-12-24 12:41] LABS: Absolute Lymphocyte Count 1.01 X10^3/ul (0.83-4.51); Basophil# 0.03 X10^3/uL; Basophil% 0.5 % (0-1); Eosinophils% 1.5 % (0-5); Hematocrit 38.2 % (37-47); Hemoglobin 12.3 g/dl (12.0-15.0); Lymphocyte # 1.01 X10^3/ul (4.0); Lymphocyte % 15.2 % (19-41); Mean Corp Hgb Conc 32.2 g/gl (32-36); Mean Corpuscular Hgb 30.1 pg (27.0-32.0); Mean Corpuscular Volume 93.4 fL (81-99); Mean Platelet Vol. 11.6 fl (6.2-12.0); Monocyte# 0.52 X10^3/uL; Monocyte% 7.8 % (0-10); Neutrophil # 4.96 X10^3/uL (2.7-7.7); Neutrophil % 74.5 % (47-70); POSITIVE COUNT NO; POSITIVE DIFFERENTIAL NO; POSITIVE MORPHOLOGY NO; Platelet Count 279 K/mm3 (150-450); RBC Distribution Width CV 13.3 % (11.6-14.6); RBC Distribution Width SD 44.4 fl (35.1-43.9); Red Blood Count 4.09 M/mm3 (4.2-5.4); White Blood Count 6.7 K/mm3 (4.4-11.0)
[2018-12-24 13:09] LABS: Vitamin D,25 Hydroxy 24.6 ng/mL (29.95-100.01)
[2018-12-24 13:18] LABS: AST(SGOT) 18 U/L (15-37); Alanine Aminotransfer ALT/SGPT 22 U/L (13-56); Albumin, Serum 3.4 g/dL (3.2-5.0); Alkaline Phosphatase 47 U/L (45-117); Anion Gap 8 (5-15); BUN 28 mg/dL (7-18); BUN/Creat Ratio 22.4 RATIO (10-20); Chloride 106 mmol/L (98-107); Creatinine, Serum 1.25 mg/dL (0.55-1.02); EST Glomerular Filtration Rate 44 mL/min (>60); Est Glom Filt Rate - Afr Amer 53 mL/min (>60); Globulin 3.4 g/dL (2.2-4.2); Glucose 79 mg/dL (74-106); Potassium 3.8 mmol/L (3.5-5.1); Protein, Total 6.8 g/dL (6.4-8.2); Sodium Level 143 mmol/L (136-145); Thyroid Stim Hormone (TSH) 1.39 uIU/mL (0.358-3.74)
== END ==
PROVIDERS: Family Provider Family Medicine Geriatric Medicine; PCP Family Medicine Geriatric Medicine; Visit Provider Family Medicine Geriatric Medicine
DX: I10 Essential (primary) hypertension (principal); E55.9 Vitamin D deficiency, unspecified
CPT/HCPCS: 36415; 80053; 82306; 84443; 85025

== ENCOUNTER 2019-06-10 05:29 | Emergency (ER) | payer MEDICARE, BC, SELFPAY ==
[2019-06-10 05:30] VITALS: BP 161/84; PULSE 82; RESP 20; TEMP 37.1; O2SAT 98; BMI 24.4
--- NOTE | 2019-06-10 05:52 | RAD_ITS ---
STUDY: X-RAY CHEST REASON FOR EXAM: Female, 83 years old. Weakness. TECHNIQUE: Single AP portable view of the chest. COMPARISON: None. FINDINGS: The lungs are clear and expanded. There is no demonstrated pleural abnormality. Normal size heart. Normal mediastinum and frederic. Normal visualized pulmonary arteries. There is atherosclerotic calcification of the aortic arch with tortuosity. There is demineralization of the osseous structures. There is degenerative osteoarthritis of the bilateral shoulders. There is no demonstrated abnormality of the visualized soft tissue structures of the upper abdomen. RAD/Chest 1 View (Portable) IMPRESSION: No acute cardiopulmonary disease. Electronically Signed: Libby Musa MD at 6:31 EST , Service support ,
--- NOTE | 2019-06-10 05:52 | EKG12_ITS ---
Test Reason : GENERAL ILLNESS Blood Pressure : / mmHG Vent. Rate : 081 BPM Atrial Rate : 081 BPM P-R Int : 192 ms QRS Dur : 088 ms QT Int : 376 ms P-R-T Axes : 055 024 043 degrees QTc Int : 436 ms Normal sinus rhythm Normal ECG Confirmed by PARVEEN HENRIQUEZ, CHUY ([id number]), editorial manager BRENNON GIMENEZ ([id number]) on 06/13/2019 12:16:55 PM Referred By: HELEN Confirmed By:TYRON SAINI MD
--- NOTE | 2019-06-10 05:59 | ED.VISSUMM ---
- ER Visit Summary Date of Service: 06/10/19 Chief Complaint: Weakness History of Present Illness: The patient is a 83 F who presents the emergency department with generalized weakness and decreased oral intake for the past 6 days. Nothing is particularly different about it earlier this morning but the patient has been up since 3:30 in the morning perseverating about it. She called her daughter neighbor came here. Daughter notes that she seems to be under a lot of stress is that she is the primary caregiver for her who has Alzheimer's is about to have some dental extractions. Patient does have a history of depression. Patient does admit that stress most likely does play a role in her weakness. She has been sleeping more throughout the day and less at night. Food just does not taste good. She denies any significant headache or pain. She does note chronic pain in the legs. No diarrhea or urinary symptoms. No fevers or cough. She denies any neurologic deficits. 1 of the patient's biggest concerns is her tramadol. She apparently takes this for leg pains. She tells me that they are trying to get her off of this medication and she has worries about that. We talked about tramadol and some potential other options but will defer that decision to her doctors. Physical Examination: Afebrile vital signs are stable Gen: Well-nourished well-developed Head: Normocephalic atraumatic Eyes: Perrl EOMI ENT: TMs clear no rhinorrhea moist mucous membranes Neck: Supple no lymphadenopathy no JVD nontender CVS: Regular rate rhythm no murmurs normal S1-S2 Respiratory: No distress clear to auscultation bilaterally chest nontender Abdomen: Soft nontender nondistended normal bowel sounds no masses Back: Nontender Extremity: Nontender no edema Skin: Normal color no rash Neuro: alert orientated ?3 CN II-XII intact normal strength sensation cerebellar Psych: Appears depressed suicidal homicidal ideation Test Results: CBC chemistry showed glucose 141 creatinine 1.25 which is at her baseline. TSH is normal. Liver lipase normal. Urinalysis was normal including specific gravity 1.01. Troponin negative. EKG sinus at a rate of 81. Chest x-ray negative. Emergency Department Course and Treatment: braided band assembler note that while reviewing her meds there is some confusion typically with her Lyrica or tramadol. Patient told them she may be taking too much of one or the other and not the right times. She certainly seems under a good deal of stress and anxiety regarding the care of her . Perhaps they would benefit from some and home care to give her a break. Maybe she needs her depression medications adjusted. She certainly needs to have her medications gone through and make sure that she is taking the appropriate doses of the times. Therefore I spoke with her primary care physician Dr. Morales. He concurs with the above plan and will see the patient in 2 hours in his office. Family is comfortable with this plan as well. Impression: 1. Weakness 2. Depression This note was generated with Peak[employer] software. It may contain incorrect words, spelling, and punctuation that were not noted in review of the chart prior to signing ED Disposition - Plan for ED Patient: Disposition: Home or Assisted Living Instructions: WEAKNESS, Unk Cause, Depression Referrals: Mahteus Morales Chi, MD [Primary Care Provider] - (go to his office at 0900 today)
[2019-06-10 06:05] LABS: Absolute Lymphocyte Count 1.12 X10^3/uL (0.83-4.51); Absolute Neutrophil Count 5.1 X10^3/uL (2.0-7.7); Basophil# 0.04 X10^3/uL; Basophil% 0.6 % (0-1); Eosinophil# 0.06 X10^3/uL; Eosinophils% 0.8 % (0-5); Hematocrit 38.9 % (37-47); Hemoglobin 13.1 g/dL (12.0-15.0); Lymphocyte # 1.12 X10^3/ul (4.0); Lymphocyte % 15.6 % (19-41); Mean Corp Hgb Conc 33.7 g/dL (32-36); Mean Corpuscular Hgb 30.6 pg (27.0-32.0); Mean Corpuscular Volume 90.9 fL (81-99); Monocyte# 0.81 X10^3/uL; Monocyte% 11.3 % (0-10); NRBC Flagged by Analyzer 0 % (0-5); Neutrophil # 5.13 X10^3/uL (2.7-7.7); Neutrophil % 71.4 % (47-70); Platelet Count 274 K/mm3 (150-450); RBC Distribution Width CV 12.8 % (11.6-14.6); RBC Distribution Width SD 41.9 fl (35.1-43.9); Red Blood Count 4.28 M/mm3 (4.2-5.4); White Blood Count 7.2 K/mm3 (4.4-11.0)
[2019-06-10] MEDS: 0.9% Normal Saline 1,000 ML 999 ML IV (06:09)
[2019-06-10 06:19] LABS: Bacteria 0 SEEN /hpf (None Seen); Mucous, Urine 0 SEEN /hpf (<or=2+); Squamous Epithelial Cells - UA 0 SEEN /hpf (5-10); White Blood Cells 0 SEEN /hpf (0-5)
[2019-06-10 06:27] LABS: Color, Urine Yellow (Yellow); Glucose, Dipstick Normal (Normal); Ketone-Dipstick Negative (Negative); Leukocyte Esterase-Dipstick Negative /ul (Negative); Nitrite-Dipstick Negative (Negative); Occult Blood-Urine 50 /ul (Negative); Protein-Dipstick Negative (Negative); Urine Bilirubin Dipstick Negative (Negative); Urine Clarity Sl. Cloudy (Clear); Urine Urobilinogen Normal (Normal)
[2019-06-10 06:36] LABS: ALB/GLOB Ratio 1.1 RATIO (0.9-2.4); AST(SGOT) 19 U/L (15-37); Alanine Aminotransfer ALT/SGPT 18 U/L (13-56); Albumin, Serum 3.6 g/dL (3.2-5.0); Alkaline Phosphatase 47 U/L (45-117); Anion Gap 9 (5-15); BUN 19 mg/dL (7-18); BUN/Creat Ratio 15.2 RATIO (10-20); Calcium,Total 9.5 mg/dL (8.5-10.1); Chloride 104 mmol/L (98-107); Creatinine, Serum 1.25 mg/dL (0.55-1.02); EST Glomerular Filtration Rate 43 mL/min (>60); Est Glom Filt Rate - Afr Amer 53 mL/min (>60); Estimated Creatinine Clearance 24.49 ml/min; Globulin 3.3 g/dL (2.2-4.2); Glucose 141 mg/dL (74-106); Lipase 137 U/L (73-393); Potassium 3.5 mmol/L (3.5-5.1); Protein, Total 6.9 g/dL (6.4-8.2); Sodium Level 138 mmol/L (136-145); Thyroid Stim Hormone (TSH) 0.82 uIU/mL (0.358-3.74)
[2019-06-10 06:42] LABS: Red Blood Cells-Urine 5-10 SEEN /hpf (0-5)
[2019-06-10 07:00] VITALS: BP 177/91; PULSE 86; RESP 18; O2SAT 97
== END 2019-06-10 07:26 | disposition home or self-care (01) ==
PROVIDERS: Emergency Provider Emergency Medicine; Family Provider Family Medicine Geriatric Medicine; PCP Family Medicine Geriatric Medicine
DX: R53.1 Weakness (principal); F32.9 Major depressive disorder, single episode, unspecified; M79.605 Pain in left leg; M79.604 Pain in right leg; G89.29 Other chronic pain; I25.10 Atherosclerotic heart disease of native coronary artery without angina pectoris; I10 Essential (primary) hypertension; K21.9 Gastro-esophageal reflux disease without esophagitis; Z79.82 Long term (current) use of aspirin; Z79.899 Other long term (current) drug therapy; I25.2 Old myocardial infarction
CPT/HCPCS: 71045; 80053; 81001; 83690; 84443; 84484; 85025; 93005; 96360; 99284; J7030; A4216

== ENCOUNTER → 2019-07-25 09:16 | Outpatient (CLI) | payer MEDICARE, BC, SELFPAY ==
[2019-07-25 12:45] LABS: Absolute Lymphocyte Count 0.86 X10^3/uL (0.83-4.51); Absolute Neutrophil Count 5.9 X10^3/uL (2.0-7.7); Basophil# 0.05 X10^3/uL; Basophil% 0.7 % (0-1); Eosinophil# 0.07 X10^3/uL; Eosinophils% 0.9 % (0-5); Hematocrit 38.8 % (37-47); Hemoglobin 12.3 g/dL (12.0-15.0); Lymphocyte # 0.86 X10^3/ul (4.0); Lymphocyte % 11.4 % (19-41); Mean Corp Hgb Conc 31.7 g/dL (32-36); Mean Corpuscular Hgb 30.6 pg (27.0-32.0); Mean Corpuscular Volume 96.5 fL (81-99); Mean Platelet Vol. 10.8 fl (6.2-12.0); Monocyte# 0.57 X10^3/uL; Monocyte% 7.6 % (0-10); NRBC Flagged by Analyzer 0 % (0-5); Neutrophil # 5.94 X10^3/uL (2.7-7.7); Neutrophil % 78.7 % (47-70); Platelet Count 237 K/mm3 (150-450); RBC Distribution Width CV 14.1 % (11.6-14.6); RBC Distribution Width SD 49.8 fl (35.1-43.9); Red Blood Count 4.02 M/mm3 (4.2-5.4); White Blood Count 7.5 K/mm3 (4.4-11.0)
[2019-07-25 13:04] LABS: Vitamin D,25 Hydroxy 20.8 ng/mL (29.95-100.01)
[2019-07-25 13:05] LABS: ALB/GLOB Ratio 1.1 RATIO (0.9-2.4); AST(SGOT) 12 U/L (15-37); Alanine Aminotransfer ALT/SGPT 20 U/L (13-56); Albumin, Serum 3.2 g/dL (3.2-5.0); Alkaline Phosphatase 51 U/L (45-117); Anion Gap 5 (5-15); BUN 32 mg/dL (7-18); BUN/Creat Ratio 31.7 RATIO (10-20); Calcium,Total 8.6 mg/dL (8.5-10.1); Chloride 110 mmol/L (98-107); Creatinine, Serum 1.01 mg/dL (0.55-1.02); EST Glomerular Filtration Rate 56 mL/min (>60); Est Glom Filt Rate - Afr Amer 67 mL/min (>60); Glucose 74 mg/dL (74-106); Potassium 4.1 mmol/L (3.5-5.1); Protein, Total 6.2 g/dL (6.4-8.2); Sodium Level 143 mmol/L (136-145)
== END ==
PROVIDERS: Family Provider Family Medicine Geriatric Medicine; PCP Family Medicine Geriatric Medicine; Visit Provider Family Medicine Geriatric Medicine
DX: I10 Essential (primary) hypertension (principal); E55.9 Vitamin D deficiency, unspecified
CPT/HCPCS: 36415; 80053; 82306; 84443; 85025

== ENCOUNTER → 2020-01-23 09:58 | Outpatient (CLI) | payer MEDICARE, BC, SELFPAY ==
[2020-01-23 11:01] LABS: Absolute Neutrophil Count 4.9 X10^3/uL (2.0-7.7); Basophil# 0.06 X10^3/uL; Basophil% 0.9 % (0-1); Eosinophil# 0.16 X10^3/uL; Eosinophils% 2.4 % (0-5); Hematocrit 41.8 % (37-47); Hemoglobin 13.1 g/dL (12.0-15.0); Lymphocyte % 14.7 % (19-41); Mean Corp Hgb Conc 31.3 g/dL (32-36); Mean Corpuscular Hgb 30.8 pg (27.0-32.0); Mean Corpuscular Volume 98.4 fL (81-99); Mean Platelet Vol. 11.3 fl (6.2-12.0); Monocyte# 0.67 X10^3/uL; Monocyte% 9.9 % (0-10); NRBC Flagged by Analyzer 0 % (0-5); Neutrophil # 4.87 X10^3/uL (2.7-7.7); Neutrophil % 71.7 % (47-70); Platelet Count 244 K/mm3 (150-450); RBC Distribution Width CV 12.8 % (11.6-14.6); RBC Distribution Width SD 45.6 fl (35.1-43.9); Red Blood Count 4.25 M/mm3 (4.2-5.4); White Blood Count 6.8 K/mm3 (4.4-11.0)
[2020-01-23 11:30] LABS: ALB/GLOB Ratio 0.9 RATIO (0.9-2.4); AST(SGOT) 14 U/L (15-37); Alanine Aminotransfer ALT/SGPT 19 U/L (13-56); Albumin, Serum 3.2 g/dL (3.2-5.0); Alkaline Phosphatase 60 U/L (45-117); Anion Gap 6 (5-15); BUN 27 mg/dL (7-18); BUN/Creat Ratio 24.3 RATIO (10-20); Calcium,Total 8.8 mg/dL (8.5-10.1); Chloride 107 mmol/L (98-107); Creatinine, Serum 1.11 mg/dL (0.55-1.02); EST Glomerular Filtration Rate 50 mL/min (>60); Est Glom Filt Rate - Afr Amer 60 mL/min (>60); Globulin 3.5 g/dL (2.2-4.2); Glucose 72 mg/dL (74-106); Potassium 4.2 mmol/L (3.5-5.1); Protein, Total 6.7 g/dL (6.4-8.2); Sodium Level 141 mmol/L (136-145)
[2020-01-23 11:38] LABS: Vitamin D,25 Hydroxy 31.8 ng/mL
== END ==
PROVIDERS: PCP Family Medicine Geriatric Medicine; Visit Provider Family Medicine Geriatric Medicine
DX: I10 Essential (primary) hypertension (principal); E55.9 Vitamin D deficiency, unspecified
CPT/HCPCS: 36415; 80053; 82306; 84443; 85025

== ENCOUNTER → 2020-07-29 13:32 | Outpatient (CLI) | payer MEDICARE, BC, SELFPAY ==
[2020-07-29 15:37] LABS: Absolute Lymphocyte Count 1.36 X10^3/uL (0.83-4.51); Absolute Neutrophil Count 5.2 X10^3/uL (2.0-7.7); Basophil# 0.07 X10^3/uL; Basophil% 0.9 % (0-1); Eosinophil# 0.12 X10^3/uL; Eosinophils% 1.6 % (0-5); Hematocrit 41.3 % (37-47); Lymphocyte # 1.36 X10^3/ul (4.0); Lymphocyte % 18.2 % (19-41); Mean Corp Hgb Conc 31.5 g/dL (32-36); Mean Corpuscular Hgb 29.6 pg (27.0-32.0); Mean Corpuscular Volume 94.1 fL (81-99); Mean Platelet Vol. 11.1 fl (6.2-12.0); Monocyte# 0.63 X10^3/uL; Monocyte% 8.4 % (0-10); NRBC Flagged by Analyzer 0 % (0-5); Neutrophil # 5.24 X10^3/uL (2.7-7.7); Neutrophil % 70.4 % (47-70); Platelet Count 240 K/mm3 (150-450); RBC Distribution Width CV 13.4 % (11.6-14.6); Red Blood Count 4.39 M/mm3 (4.2-5.4); White Blood Count 7.5 K/mm3 (4.4-11.0)
[2020-07-29 15:59] LABS: Vitamin D,25 Hydroxy 18.8 ng/mL
[2020-07-29 16:03] LABS: ALB/GLOB Ratio 1.1 RATIO (0.9-2.4); AST(SGOT) 9 U/L (15-37); Alanine Aminotransfer ALT/SGPT 21 U/L (13-56); Albumin, Serum 3.5 g/dL (3.2-5.0); Alkaline Phosphatase 64 U/L (45-117); Anion Gap 4 (5-15); BUN 28 mg/dL (7-18); BUN/Creat Ratio 25.9 RATIO (10-20); Calcium,Total 8.8 mg/dL (8.5-10.1); Chloride 109 mmol/L (98-107); Creatinine, Serum 1.08 mg/dL (0.55-1.02); EST Glomerular Filtration Rate 51 mL/min (>60); Est Glom Filt Rate - Afr Amer 62 mL/min (>60); Globulin 3.2 g/dL (2.2-4.2); Glucose 91 mg/dL (74-106); Potassium 4.4 mmol/L (3.5-5.1); Protein, Total 6.7 g/dL (6.4-8.2); Sodium Level 140 mmol/L (136-145); Thyroid Stim Hormone (TSH) 1.12 uIU/mL (0.358-3.74)
== END ==
PROVIDERS: PCP Family Medicine Geriatric Medicine; Visit Provider Family Medicine Geriatric Medicine
DX: I10 Essential (primary) hypertension (principal); E55.9 Vitamin D deficiency, unspecified
CPT/HCPCS: 36415; 80053; 82306; 84443; 85025

== ENCOUNTER → 2021-02-28 13:31 | Outpatient (CLI) | payer MEDICARE, BC, SELFPAY ==
[2021-02-28 15:44] LABS: Absolute Lymphocyte Count 1.28 X10^3/uL (0.83-4.51); Absolute Neutrophil Count 5.5 X10^3/uL (2.0-7.7); Basophil# 0.06 X10^3/uL; Basophil% 0.8 % (0-1); Eosinophil# 0.17 X10^3/uL; Eosinophils% 2.2 % (0-5); Hematocrit 41.9 % (37-47); Hemoglobin 13.4 g/dL (12.0-15.0); Lymphocyte # 1.28 X10^3/ul (0.83-4.51); Lymphocyte % 16.6 % (19-41); Mean Corpuscular Hgb 30.3 pg (27.0-32.0); Mean Corpuscular Volume 94.8 fL (81-99); Mean Platelet Vol. 11.4 fl (6.2-12.0); Monocyte# 0.71 X10^3/uL; Monocyte% 9.2 % (0-10); NRBC Flagged by Analyzer 0 % (0-5); Neutrophil # 5.45 X10^3/uL (2.7-7.7); Neutrophil % 70.7 % (47-70); Platelet Count 233 K/mm3 (150-450); RBC Distribution Width CV 13.1 % (11.6-14.6); RBC Distribution Width SD 46.5 fl (35.1-43.9); Red Blood Count 4.42 M/mm3 (4.2-5.4); White Blood Count 7.7 K/mm3 (4.4-11.0)
[2021-02-28 15:56] LABS: Vitamin D,25 Hydroxy 40.2 ng/mL
[2021-02-28 16:14] LABS: ALB/GLOB Ratio 1.1 RATIO (0.9-2.4); AST(SGOT) 17 U/L (15-37); Alanine Aminotransfer ALT/SGPT 30 U/L (13-56); Albumin, Serum 3.6 g/dL (3.2-5.0); Alkaline Phosphatase 62 U/L (45-117); Anion Gap 8 (5-15); BUN 30 mg/dL (7-18); BUN/Creat Ratio 27.3 RATIO (10-20); Calcium,Total 8.9 mg/dL (8.5-10.1); Chloride 106 mmol/L (98-107); EST Glomerular Filtration Rate 50 mL/min (>60); Est Glom Filt Rate - Afr Amer 61 mL/min (>60); Globulin 3.3 g/dL (2.2-4.2); Glucose 118 mg/dL (74-106); Potassium 4.2 mmol/L (3.5-5.1); Protein, Total 6.9 g/dL (6.4-8.2); Sodium Level 139 mmol/L (136-145); Thyroid Stim Hormone (TSH) 1.54 uIU/mL (0.358-3.74)
== END ==
PROVIDERS: PCP Family Medicine Geriatric Medicine; Visit Provider Family Medicine Geriatric Medicine
DX: I10 Essential (primary) hypertension (principal); E55.9 Vitamin D deficiency, unspecified
CPT/HCPCS: 36415; 80053; 82306; 84443; 85025

== ENCOUNTER → 2022-01-09 | Outpatient (CLI) | payer MEDICARE, BC, SELFPAY ==
--- NOTE | 2022-01-09 16:20 | RAD_ITS ---
STUDY: X-RAY - LUMBAR SPINE REASON FOR EXAM: Female, 86 years old. PAIN TECHNIQUE: XR Spine Lumbar 2 or 3 Views COMPARISON: None FINDINGS: Normal lumbar lordosis. There is a levoscoliosis of the lumbar spine. There is a normal alignment of the vertebrae. Vacuum disc phenomenon. There is multilevel endplate spondylosis of the lumbar vertebrae. There is multi-level degenerative disc disease with multi-level disc space narrowing. There are atherosclerotic vascular calcifications. The soft tissue structures are unremarkable. RAD/Lumbar Spine 2 or 3 Views IMPRESSION: Degenerative changes of the spine, as detailed above. Electronically Signed: Erich August MD at 17:18 EDT ,
--- NOTE | 2022-01-09 16:20 | RAD_ITS ---
STUDY: XR Knee 1 or 2 Views 01/09/2022 5:16 PM REASON FOR EXAM: Female, 86 years old. PAIN TECHNIQUE: XR Knee 1 or 2 Views LEFT COMPARISON: None FINDINGS: Normal visualized distal femur. Normal visualized proximal tibia and fibula. Normal proximal tibiofibular articulation. There is severe degenerative arthrosis of the medial femorotibial compartment with severe joint space narrowing. There is mild degenerative arthrosis of the lateral femorotibial compartment. There is severe degenerative arthrosis of the patellofemoral articulation. The soft tissue structures are unremarkable. RAD/Knee 1 or 2 Views IMPRESSION: Degenerative arthrosis. Electronically Signed: Erich August MD at 17:17 EDT ,
--- NOTE | 2022-01-09 16:30 | RAD_ITS ---
STUDY: XR Knee 1 or 2 Views 01/09/2022 5:16 PM REASON FOR EXAM: Female, 86 years old. PAIN TECHNIQUE: XR Knee 1 or 2 Views RIGHT COMPARISON: None FINDINGS: Normal visualized distal femur. Normal visualized proximal tibia and fibula. Normal proximal tibiofibular articulation. There is severe degenerative arthrosis of the medial femorotibial compartment with severe joint space narrowing. There is severe degenerative arthrosis of the lateral femorotibial compartment with severe joint space narrowing. There is severe degenerative arthrosis of the patellofemoral articulation. There is a soft tissue prominence in the suprapatellar region suggesting a small volume joint effusion. The soft tissue structures are unremarkable. RAD/Knee 1 or 2 Views IMPRESSION: Degenerative arthrosis.Effusion, as described above. Electronically Signed: Erich August MD at 17:17 EDT ,
== END | disposition home or self-care (01) ==
LOC: RAD 16:19
PROVIDERS: PCP Family Medicine Geriatric Medicine; Referring Provider Anesthesiology Pain Medicine; Visit Provider Anesthesiology Pain Medicine
DX: M51.37 Other intervertebral disc degeneration, lumbosacral region (principal); M25.561 Pain in right knee; M25.562 Pain in left knee
CPT/HCPCS: 72100; 73560

== ENCOUNTER 2022-03-24 22:04 | Inpatient (IN) | payer MEDICARE, BC, SELFPAY ==
[2022-03-24 22:07] VITALS: BP 160/85; PULSE 111; RESP 16; TEMP 36.7; O2SAT 98; BMI 27.3
[2022-03-24 22:55] LABS: Absolute Lymphocyte Count 0.88 X10^3/uL (0.83-4.51); Absolute Neutrophil Count 6.3 X10^3/uL (2.0-7.7); Basophil# 0.03 X10^3/uL; Basophil% 0.4 % (0-1); Eosinophil# 0.01 X10^3/uL; Eosinophils% 0.1 % (0-5); Hematocrit 38.2 % (37-47); Lymphocyte # 0.88 X10^3/ul (0.83-4.51); Lymphocyte % 11.3 % (19-41); Mean Corpuscular Hgb 31.6 pg (27.0-32.0); Mean Corpuscular Volume 92.7 fL (81-99); Mean Platelet Vol. 9.5 fl (6.2-12.0); Monocyte% 6.4 % (0-10); NRBC Flagged by Analyzer 0 % (0-5); Neutrophil # 6.29 X10^3/uL (2.7-7.7); Platelet Count 386 K/mm3 (150-450); Red Blood Count 4.12 M/mm3 (4.2-5.4); White Blood Count 7.8 K/mm3 (4.4-11.0)
[2022-03-24 23:10] LABS: Anion Gap 10 (5-15); BUN 18 mg/dL (7-18); BUN/Creat Ratio 18.5 RATIO (10-20); Calcium,Total 9.5 mg/dL (8.5-10.1); Chloride 100 mmol/L (98-107); Creatinine, Serum 0.97 mg/dL (0.55-1.02); EST Glomerular Filtration Rate 58 mL/min (>60); Est Glom Filt Rate - Afr Amer 70 mL/min (>60); Glucose 150 mg/dL (74-106); Potassium 3.4 mmol/L (3.5-5.1); Sodium Level 134 mmol/L (136-145)
--- NOTE | 2022-03-24 23:38 | EX.ED.DYSGE1 ---
HPI History of Present Illness Chief Complaint: General Illness Informant: patient and family Onset/Context/Timing Onset: Today Context: Gradual Onset Timing: Continuous Quality: Belching, dry heaving Current Severity: Severe Maximum Severity: Severe Worsened by: eating/drinking Relieved by: nothing Associated Symptoms Associated Symptoms: none Narrative Narrative: All data day patient has been belching and nauseated, she has been dry heaving as of late, she has not eaten anything all day and drink very little, she cannot keep anything down. No fevers or chills. No cough or dyspnea. She had a bowel movement just prior to coming here tonight and cannot remember exactly but does not think it was remarkable. She had a prior cholecystectomy but no other abdominal surgeries that she knows of and it was remote, nothing recently. No urinary symptoms although she is urinating less today. [facility] Medical History Chronic knee pain GERD (gastroesophageal reflux disease) Hypertension Home Medications losartan 100 mg tablet 100 mg PO DAILY 07/20/13 [History Last Taken Unknown] metoprolol tartrate 25 mg tablet 25 mg PO DAILY 07/20/13 [History Last Taken Unknown] omeprazole 40 mg capsule,delayed release 40 mg PO DAILY 07/20/13 [History Last Taken Unknown] pregabalin 75 mg capsule (Lyrica) 75 mg PO DAILY 07/20/13 [History Last Taken Unknown] calcium citrate 200 mg (950 mg) tablet 400 mg PO BID 03/25/22 [History Last Taken Unknown] duloxetine 60 mg capsule,delayed release (Cymbalta) 60 mg PO DAILY 03/25/22 [History Last Taken Unknown] ferrous sulfate 325 mg (65 mg iron) tablet (iron) 325 mg PO DAILY 03/25/22 [History Last Taken Unknown] oxybutynin chloride 5 mg tablet,extended release 24 hr 5 mg PO DAILY 03/25/22 [History Last Taken Unknown] rosuvastatin 5 mg tablet (Crestor) 5 mg PO DAILY 03/25/22 [History Last Taken Unknown] Allergy/AdvReac Type Severity Reaction Status Date / Time No Known Allergies Allergy Verified 03/24/22 22:09 Family History (Updated 03/25/22 @ 03:[address] Sina Orellana MD) Other Arthritis GERD (gastroesophageal reflux disease) Surgical History History of cholecystectomy History of surgery on lower extremity Social History Smoking Status: Never smoker ROS ROS ED Constitutional Constitutional ED: Reports malaise; Denies chills or fever(s) Eyes Eyes: Denies change in vision or diplopia ENT ENT ED: Denies rhinorrhea or sore throat Cardiovascular Cardiovascular: Denies chest pain or palpitations Respiratory/Chest Respiratory/Chest: Denies cough or dyspnea Gastrointestinal Gastrointestinal: Reports as per HPI, anorexia, dry heaves, nausea and vomiting; Denies abdominal pain or diarrhea Genitourinary Genitourinary ED: Denies dysuria or hematuria Musculoskeletal Musculoskeletal: Denies back pain or neck pain Integumentary Denies abscess or rash Neurologic Neurologic: Denies headache(s), paresthesias or weakness Psychiatric Psychiatric: Denies anxiety or suicidal thoughts EXAM Physical Exam Const Vital Signs: 03/24/22 22:07 03/24/22 22:37 03/25/22 00:04 Temperature 98.1 F Temperature Source Temporal Pulse Rate 111 H 100 Respiratory Rate 16 16 Respiratory Effort Normal Blood Pressure 160/85 H Blood Pressure Mean 110 Pulse Ox 98 97 Oxygen Delivery Method Room Air Room Air Positive well nourished and well developed Constitutional Narrative: Ill-appearing but in no distress General Appearance ED: well developed and NAD HEENT Reports moist mucous membranes normocephalic and atraumatic Eyes PERRL and EOMs intact bilaterally Neck full ROM and supple Resp normal respiratory effort and clear to auscultation bilaterally Cardio regular rate, regular rhythm and no murmurs Cardio Narrative: Mildly tachycardic GI non-distended GI Narrative: Nontender throughout. Mildly distended, soft. Absent bowel sounds. Palpation: soft Back/Spine no CVA tenderness General Back: other FROM Extremity normal to inspection General Extremety ED: Negative for edema, pulses abnormal or tenderness General Extremity: Negative for edema or pulses abnormal Neuro oriented x3, CN's II-XII intact bilaterally and no sensory deficits noted Sensorium / Orientation: awake and alert Motor Exam: strength 5/5 throughout Skin no rashes or lesions noted and no wounds MDM MDM MDM Narrative Medical decision making narrative: Initially concerned about the patient's absent bowel sounds and the possibility of an ileus, although the reason would be unknown, I ordered acute abdominal series but the patient is too weak to stand so we canceled it and changed it to a CT abdomen/pelvis without contrast which shows no acute abnormalities, nor infiltrates in the lower lung sims see below. Her labs are unremarkable except for very slightly low levels of sodium and potassium. She is borderline prerenal. Urine shows no infection. cardiac studies are added, to rule out acute coronary syndrome; troponin is negative and EKG is normal. She has had no headache or neurologic symptoms/findings to suggest intracranial hemorrhage here. She is not anticoagulated. Therefore I did not think a CT of the head would be necessary. She was given Zofran and IV fluids but I reevaluation she took a couple sips of water and she is actively vomiting. Given all this I think it would be best to admit her, she is at high risk for just returning if we try to send her home family is in agreement as is the patient. Differential includes infectious etiologies, has a diagnosis of exclusion this could be viral gastritis, or could be a functional ileus for other reasons, however the CT did not suggest this was an ileus. Lab Data Attestation: I reviewed the patient's lab results. Labs: Laboratory Results - last 24 hr 03/24/22 03/24/22 03/24/22 22:24 22:24 22:24 WBC 7.8 RBC 4.12 L Hgb 13.0 Hct 38.2 MCV 92.7 MCH 31.6 MCHC 34.0 RDW Std Deviation 41.0 RDW Coeff of Misty 12.0 Plt Count 386 MPV 9.5 Immature Gran % (Auto) 0.800 Neut % (Auto) 81.0 H Lymph % (Auto) 11.3 L [place] % (Auto) 6.4 Eos % (Auto) 0.1 Baso % (Auto) 0.4 Absolute Neuts (auto) 6.3 Absolute Lymphs (auto) 0.88 Nucleated RBC % 0 Sodium 134 L Potassium 3.4 L Chloride 100 Carbon Dioxide 24.0 Anion Gap 10 BUN 18 Creatinine 0.97 Estim Creat Clear Calc 29.90 Est GFR (MDRD) Af Amer 70 Est GFR (MDRD) Non-Af 58 L BUN/Creatinine Ratio 18.5 Glucose 150 H Calcium 9.5 Troponin I High Sens 14 Urine Color Urine Clarity Urine pH Ur Specific [place] Urine Protein Urine Glucose (UA) Urine Ketones Urine Occult Blood Urine Nitrite Urine Bilirubin Urine Urobilinogen Ur Leukocyte Esterase Urine RBC Urine WBC Ur Squamous Epith Cells Urine Bacteria Urine Mucus 03/25/22 01:06 WBC RBC Hgb Hct MCV MCH MCHC RDW Std Deviation RDW Coeff of Misty Plt Count MPV Immature Gran % (Auto) Neut % (Auto) Lymph % (Auto) [place] % (Auto) Eos % (Auto) Baso % (Auto) Absolute Neuts (auto) Absolute Lymphs (auto) Nucleated RBC % Sodium Potassium Chloride Carbon Dioxide Anion Gap BUN Creatinine Estim Creat Clear Calc Est GFR (MDRD) Af Amer Est GFR (MDRD) Non-Af BUN/Creatinine Ratio Glucose Calcium Troponin I High Sens Urine Color Yellow Urine Clarity Clear Urine pH 8.0 Ur Specific [place] 1.010 Urine Protein 30 H Urine Glucose (UA) Normal Urine Ketones Negative Urine Occult Blood 25 H Urine Nitrite Negative Urine Bilirubin Negative Urine Urobilinogen Normal Ur Leukocyte Esterase Negative Urine RBC 0-5 SEEN Urine WBC 0 SEEN Ur Squamous Epith Cells 0 SEEN Urine Bacteria 0 SEEN Urine Mucus 0 SEEN Radiography Diagnostic Testing: Clinical Impression(s) from Imaging Studies Abdomen/Pelvis CT 03/25/22 00:30 IMPRESSION: 1. No acute intra-abdominal findings on this noncontrast exam. 2. Chronic findings as detailed above. Electronically Signed: Erich Broussard MD at 1:24 EDT Reading Location ID and State: [facility] / [place] Tel , Service support , Rhythm Strip Rhythm Strip: Sinus Rhythm Rate: 85 Ectopy: None EKG Initial EKG: Attestation: I personally reviewed and interpreted this EKG as follows: Interpretation: Sinus Rhythm and No Acute Injury Pattern Comments: Normal EKG Discharge Plan Dx/Rx/DC Orders Clinical Impression: Intractable vomiting, Abdominal distension Disposition Disposition: [facility]
[2022-03-24] MEDS: 0.9% Normal Saline 1,000 ML 250 ML IV (23:57)
[2022-03-24] MEDS: Ondansetron 4 MG/2 ML Vial IV (23:57)
[2022-03-25] VITALS (9 sets, daily range): BP systolic 134–156; BP diastolic 56–84; PULSE 73–100; RESP 15–18; TEMP 36.7–37.3; O2SAT 93–98; BMI 26.7
--- NOTE | 2022-03-25 00:30 | CT_ITS ---
EXAM: CT ABDOMEN AND PELVIS WITHOUT INTRAVENOUS CONTRAST CLINICAL INDICATION: distension, vomiting, absent BS TECHNIQUE: Helically acquired images were obtained of the abdomen and pelvis without intravenous contrast. This CT exam was performed using one or more of the following dose reduction techniques: automated exposure control, adjustment of the mA and/or kV according to patient size, and/or use of iterative reconstruction technique. This report was created using [employer] report generation technology. COMPARISON: 08/12/2012 FINDINGS: LOWER THORAX: Unremarkable. Lung bases are clear. No cardiomegaly. No significant pericardial effusion. ABDOMEN: LIVER: Unremarkable. Homogeneous. GALLBLADDER AND BILE DUCTS: The gallbladder is not identified and may be surgically absent. No intra- or extrahepatic biliary ductal dilation. PANCREAS: Unremarkable. No focal cystic mass. SPLEEN: Unremarkable. Normal size without focal cystic or solid mass. ADRENALS: Unremarkable. No nodules. KIDNEYS AND URETERS: Left nephrectomy changes. Stable small exophytic lesion arising from the right kidney. STOMACH AND BOWEL: No bowel obstruction. Stable left flank hernia containing a loop of colon, without obstruction. Surgical changes of the proximal colon. No focal inflammatory change. PELVIS: APPENDIX: No evidence of acute appendicitis. BLADDER: Unremarkable. REPRODUCTIVE: Unremarkable as visualized. No mass. ABDOMEN and PELVIS: INTRAPERITONEAL SPACE: Unremarkable. No ascites or other fluid collection. No free air. BONES/JOINTS: Diffuse degenerative changes of the spine. No suspicious lytic or blastic abnormality. VASCULATURE: Unremarkable. Abdominal aorta is non-dilated. LYMPH NODES: Unremarkable. No enlarged lymph nodes. CT/Abdomen/Pelvis without Cont IMPRESSION: 1. No acute intra-abdominal findings on this noncontrast exam. 2. Chronic findings as detailed above. Electronically Signed: Erich Broussard MD at 1:24 EDT ,
[2022-03-25 01:09] LABS: Bacteria 0 SEEN /hpf (None Seen); Mucous, Urine 0 SEEN /hpf (<or=2+); Squamous Epithelial Cells - UA 0 SEEN /hpf (5-10); White Blood Cells 0 SEEN /hpf (0-5)
[2022-03-25 01:10] LABS: Color, Urine Yellow (Yellow); Glucose, Dipstick Normal (Normal); Ketone-Dipstick Negative (Negative); Leukocyte Esterase-Dipstick Negative /ul (Negative); Nitrite-Dipstick Negative (Negative); Occult Blood-Urine 25 /ul (Negative); Protein-Dipstick 30 mg/dl (Negative); Urine Bilirubin Dipstick Negative (Negative); Urine Clarity Clear (Clear); Urine Urobilinogen Normal (Normal)
[2022-03-25 01:16] LABS: Red Blood Cells-Urine 0-5 SEEN /hpf (0-5)
--- NOTE | 2022-03-25 02:48 | EKG12_ITS ---
Test Reason : Blood Pressure : / mmHG Vent. Rate : 086 BPM Atrial Rate : 086 BPM P-R Int : 202 ms QRS Dur : 084 ms QT Int : 364 ms P-R-T Axes : 034 008 016 degrees QTc Int : 435 ms Normal sinus rhythm Normal ECG Confirmed by PARVEEN HENRIQUEZ, CHUY ([id number]), editor city TAI REYES ([id number]) on 03/28/2022 9:01:02 AM Referred By: FRANCES Confirmed By:TYRON SAINI MD
--- NOTE | 2022-03-25 02:48 | ED.RN ---
PT TOOK 3 SIPS OF WATER AND HAD NUMEROUS EPISODES OF DRY HEAVING AND NAUSEA. DR. BOBBY MONTEIRO.
--- NOTE | 2022-03-25 03:00 | HP.PCM.HOS_ITS ---
HPI - General General Date of Admission: 03/25/22 Date of Service: 03/25/22 Chief Complaint: Nausea and vomiting HPI Narrative TANMAY AGUILLON, is a 86 F with a significant history of chronic knee; hypertension and GERD who presents to the emergency department with 1 day history of persistent; nausea and vomiting. Associated with her symptoms is dry heaving. Further patient has abdominal bloating and abdominal pain. The last meal patient ate before her symptoms started was pizza. She got the pizza from [facility]. The same pizza was eating by patient's and daughter. However patient daughter and did not have patient's symptoms. The last time patient bowels moved was just before paramedics brought her to the emergency department. Further patient feels weak. At the emergency department acute bowel series could not be obtained because patient was weak. Subsequently CT scan of patient abdomen and pelvis was done. [facility] Medical History Chronic knee pain GERD (gastroesophageal reflux disease) Hypertension Home Medications losartan 100 mg tablet 100 mg PO DAILY 07/20/13 [History Last Taken Unknown] metoprolol tartrate 25 mg tablet 25 mg PO DAILY 07/20/13 [History Last Taken Unknown] omeprazole 40 mg capsule,delayed release 40 mg PO DAILY 07/20/13 [History Last Taken Unknown] pregabalin 75 mg capsule (Lyrica) 75 mg PO DAILY 07/20/13 [History Last Taken Unknown] calcium citrate 200 mg (950 mg) tablet 400 mg PO BID 03/25/22 [History Last Taken Unknown] duloxetine 60 mg capsule,delayed release (Cymbalta) 60 mg PO DAILY 03/25/22 [History Last Taken Unknown] ferrous sulfate 325 mg (65 mg iron) tablet (iron) 325 mg PO DAILY 03/25/22 [H istory Last Taken Unknown] oxybutynin chloride 5 mg tablet,extended release 24 hr 5 mg PO DAILY 03/25/22 [History Last Taken Unknown] rosuvastatin 5 mg tablet (Crestor) 5 mg PO DAILY 03/25/22 [History Last Taken Unknown] Allergy/AdvReac Type Severity Reaction Status Date / Time No Known Allergies Allergy Verified 03/24/22 22:09 Family History Other Arthritis GERD (gastroesophageal reflux disease) Surgical History History of cholecystectomy History of surgery on lower extremity Social History Smoking Status: Never smoker ROS ROS Narrative Pertinent positives and pertinent negatives as noted in HPI. All other systems were reviewed and are negative Vital Signs Vital Signs Vital Signs: 03/24/22 22:07 03/24/22 22:37 03/25/22 00:04 Temperature 98.1 F Temperature Source Temporal Pulse Rate 111 H 100 Respiratory Rate 16 16 Respiratory Effort Normal Blood Pressure 160/85 H Blood Pressure Mean 110 Pulse Ox 98 97 Oxygen Delivery Method Room Air Room Air 03/25/22 02:53 03/25/22 02:56 Temperature 98.2 F Temperature Source Temporal Pulse Rate 89 89 Respiratory Rate 15 15 Respiratory Effort Blood Pressure 138/73 H 138/73 H Blood Pressure Mean 94 94 Pulse Ox 98 98 Oxygen Delivery Method Room Air Room Air Weight Weight: 63.503 kg Body Mass Index (BMI) 27.3 Physical Exam Narrative Physical exam: General: Well-nourished, well-developed. Head: Normocephalic, atraumatic, no tenderness Eyes: Vision is grossly intact. EOMI ENT, no trauma, moist mucous membranes, no rhinorrhea Neck: Nontender, full range of motion. CVS: Regular rate and rhythm. S1-S2 present. No murmur, gallop or rub. Respiratory : clear to auscultation bilaterally, chest wall nontender, no wheezing Abdomen: Soft, nontender, nondistended, normal bowel sounds, no masses : Deferred Back: Nontender, no CVA tenderness. Extremities: Nontender full range of motion, no trauma Skin: Normal color, no trauma, abrasions Neuro: Alert, oriented, cranial nerves II through XII grossly intact. Psychiatry: Normal mood. Normal affect. Not depressed. Not anxious. Results Lab / Micro Data Result Diagrams: 03/24/22 22:24 03/24/22 22:24 Labs: Laboratory Results - last 24 hr 03/24/22 22:24: WBC 7.8, RBC 4.12 L, Hgb 13.0, Hct 38.2, MCV 92.7, MCH 31.6, MCHC 34.0, RDW Std Deviation 41.0, RDW Coeff of Misty 12.0, Plt Count 386, MPV 9.5, Immature Gran % (Auto) 0.800, Neut % (Auto) 81.0 H, Lymph % (Auto) 11.3 L, [place] % (Auto) 6.4, Eos % (Auto) 0.1, Baso % (Auto) 0.4, Absolute Neuts (auto) 6.3, Absolute Lymphs (auto) 0.88, Nucleated RBC % 0 03/24/22 22:24: Sodium 134 L, Potassium 3.4 L, Chloride 100, Carbon Dioxide 24.0, Anion Gap 10, BUN 18, Creatinine 0.97, Estim Creat Clear Calc 29.90, Est GFR (MDRD) Af Amer 70, Est GFR (MDRD) Non-Af 58 L, BUN/Creatinine Ratio 18.5, Glucose 150 H, Calcium 9.5 03/25/22 01:06: Urine Color Yellow, Urine Clarity Clear, Urine pH 8.0, Ur Specific [place] 1.010, Urine Protein 30 H, Urine Glucose (UA) Normal, Urine Ketones Negative, Urine Occult Blood 25 H, Urine Nitrite Negative, Urine Bilirubin Negative, Urine Urobilinogen Normal, Ur Leukocyte Esterase Negative, Urine RBC 0-5 SEEN, Urine WBC 0 SEEN, Ur Squamous Epith Cells 0 SEEN, Urine B acteria 0 SEEN, Urine Mucus 0 SEEN Micro: Microbiology 03/24/22 22:35 Nasal Secretion SARS-CoV-2 Antigen (Rapid) - Final Radiology Impression Abdomen/Pelvis CT 03/25/22 00:30 IMPRESSION: 1. No acute intra-abdominal findings on this noncontrast exam. 2. Chronic findings as detailed above. Electronically Signed: Erich Broussard MD at 1:24 EDT , Assessment & Plan Assessment/Plan (1) Intractable vomiting: PLAN: Plan Intractable nausea and vomiting/Abdominal pain CT of abdomen and pelvis was visualized and independent interpreted; and I agree with radiologist interpretation of no acute abdominal process. Supportive treatment with normal saline with potassium ordered. Keep n.p.o. EKG with no ST or T abnormality. Troponin is normal. No evidence of dehydration on presentation. Hyponatremia and hypokalemia Sodium on presentation 134; potassium 3.4 Likely secondary to nausea and vomiting. Electrolyte replacement as above. Trend BMP Check Magnesium. Hypertension Blood pressure is stable Hold home p.o. meds as patient has nausea and vomiting. Scheduled Vasotec ordered. Trend blood pressure and adjust blood pressure medications. DVT prophylaxis: SCDs ordered Charges/Coding Visit Charges OBSV E&M: 09461 Initial observation care L3
[2022-03-25 03:11] LABS: Troponin-I HS 14 pg/mL (3.0-54.0)
[2022-03-25] MEDS: Ondansetron 4 MG/2 ML Vial IV ×3 (03:48→18:04)
[2022-03-25] MEDS: KCL 20MEQ in 0.9% NS 20 MEQ/1,000 ML IV.SOLN. 75 MEQ IV (04:21)
[2022-03-25] MEDS: Enalaprilat 1.25 MG/ML Vial 0.625 MG IV ×3 (05:47→18:04)
[2022-03-25 07:07] LABS: Absolute Lymphocyte Count 1.08 X10^3/uL (0.83-4.51); Basophil# 0.04 X10^3/uL; Basophil% 0.4 % (0-1); Eosinophil# 0.02 X10^3/uL; Eosinophils% 0.2 % (0-5); Hematocrit 36.1 % (37-47); Hemoglobin 11.8 g/dL (12.0-15.0); Lymphocyte # 1.08 X10^3/ul (0.83-4.51); Lymphocyte % 11.9 % (19-41); Mean Corp Hgb Conc 32.7 g/dL (32-36); Mean Corpuscular Hgb 30.5 pg (27.0-32.0); Mean Corpuscular Volume 93.3 fL (81-99); Mean Platelet Vol. 9.5 fl (6.2-12.0); Monocyte# 0.85 X10^3/uL; Monocyte% 9.4 % (0-10); NRBC Flagged by Analyzer 0 % (0-5); Neutrophil # 7.01 X10^3/uL (2.7-7.7); Neutrophil % 77.3 % (47-70); Platelet Count 346 K/mm3 (150-450); RBC Distribution Width SD 41.1 fl (35.1-43.9); Red Blood Count 3.87 M/mm3 (4.2-5.4); White Blood Count 9.1 K/mm3 (4.4-11.0)
[2022-03-25 07:30] LABS: Anion Gap 9 (5-15); BUN 14 mg/dL (7-18); BUN/Creat Ratio 15.6 RATIO (10-20); Calcium,Total 8.6 mg/dL (8.5-10.1); Chloride 105 mmol/L (98-107); EST Glomerular Filtration Rate 63 mL/min (>60); Est Glom Filt Rate - Afr Amer 77 mL/min (>60); Estimated Creatinine Clearance 32.23 ml/min; Glucose 127 mg/dL (74-106); Potassium 3.7 mmol/L (3.5-5.1); Sodium Level 138 mmol/L (136-145)
[2022-03-25 08:07] LABS: Magnesium 1.9 mg/dL (1.6-2.6)
[2022-03-25] MEDS: Enoxaparin 30 MG/0.3 ML Syringe SC (09:42)
--- NOTE | 2022-03-25 10:54 | PCM.PN.BLA ---
Progress Note Patient was seen and examined. She was admitted this morning with intractable vomiting. She complains of feeling nauseous. Her vitals are fairly controlled. Review of blood work shows resolved hypokalemia, Mg 1.9 She is on IV fluids with potassium supplementation We will continue to treat symptomatically with antiemetics and IV fluids Repeat blood work in a.m.
--- NOTE | 2022-03-25 12:13 | NURSING ---
DR SIBLEY NOTIFIED THAT PT IS STILL NAUSEATED. SHE WILL PUT ORDERS IN.
[2022-03-25] MEDS: 0.9% Saline Lock 10 ML Syringe IV ×2 (13:11→18:04)
[2022-03-25] MEDS: proCHLORPERazine 10 MG/2 ML Vial IV (13:11)
--- NOTE | 2022-03-25 13:56 | CASEMGMT ---
Social Work As per admitting RN, pt indicated has LW/POA but cannot bring in documents, Laura De Souza and Tiny Brown are pt's medical POAs. AMALIA Andujar
--- NOTE | 2022-03-25 15:25 | CASEMGMT ---
HARSHIL RIZVI Face to Face with patient for initial transition planning/care coordination assessment. RN CM introduced self and role at [facility]. Patient lying in bed, alert and oriented. Patient willing to participate in assessment and is able to answer all questions appropriately. Care providers, pharmacy, and demographics verified. Patient wishes to discharge home, denies need for home health at this time. Patient states she has no further needs or concerns at this time. CM to follow for discharge planning needs that may arise. PCP: MADELEINE Valle at [facility] Specialists: [facility] [employer] [facility] [place] Preferred Pharmacy: [facility] Insurance: Cynthia CASIANO Prescription Benefit: yes Living Will/HPOA: yes, daughter Laura De Souza LNOK: , daughter Living Arrangements: Patient lives with in a single story home with one step and grab bar to enter. Patient states she is independent at home. Transportation: self, daughters DME/HHC: Patient states she has shower chair, raised toilet, cane, walker, and grab bars. Patient denies previous HHC or SNF. Disposition Plan: Patient to discharge home with family support and follow-up plans in place. Meenakshi SOARES, RN, CM
[2022-03-25] MEDS: KCL 20MEQ in 0.9% NS 20 MEQ/1,000 ML IV.SOLN. 100 MEQ IV (15:44)
[2022-03-26 00:20] VITALS: BP 157/64; PULSE 70
[2022-03-26] MEDS: KCL 20MEQ in 0.9% NS 20 MEQ/1,000 ML IV.SOLN. 100 MEQ IV ×2 (00:32→09:19)
[2022-03-26] MEDS: Enalaprilat 1.25 MG/ML Vial 0.625 MG IV ×2 (00:32→05:59)
[2022-03-26 02:30] VITALS: BP 151/68; PULSE 75; RESP 16; TEMP 36.6; O2SAT 95
--- NOTE | 2022-03-26 05:55 | EKG12_ITS ---
Test Reason : AM EKG Blood Pressure : / mmHG Vent. Rate : 076 BPM Atrial Rate : 076 BPM P-R Int : 196 ms QRS Dur : 086 ms QT Int : 396 ms P-R-T Axes : 053 -01 006 degrees QTc Int : 445 ms Normal sinus rhythm Normal ECG When compared with ECG of 25-MAR-2022 03:17, MANUAL COMPARISON REQUIRED, DATA IS UNCONFIRMED Confirmed by PARVEEN HENRIQUEZ, CHUY ([id number]), editor house organ TAI REYES ([id number]) on 03/28/2022 9:25:48 AM Referred By: ANGELA Confirmed By:TYRON SAINI MD
[2022-03-26 06:09] VITALS: BP 180/71; PULSE 74
[2022-03-26 06:56] LABS: Absolute Lymphocyte Count 1.45 X10^3/uL (0.83-4.51); Absolute Neutrophil Count 6.5 X10^3/uL (2.0-7.7); Basophil# 0.05 X10^3/uL; Basophil% 0.6 % (0-1); Eosinophil# 0.05 X10^3/uL; Eosinophils% 0.6 % (0-5); Hematocrit 37.6 % (37-47); Hemoglobin 12.1 g/dL (12.0-15.0); Lymphocyte # 1.45 X10^3/ul (0.83-4.51); Mean Corp Hgb Conc 32.2 g/dL (32-36); Mean Corpuscular Hgb 30.5 pg (27.0-32.0); Mean Corpuscular Volume 94.7 fL (81-99); Mean Platelet Vol. 10.2 fl (6.2-12.0); Monocyte# 0.97 X10^3/uL; Monocyte% 10.7 % (0-10); NRBC Flagged by Analyzer 0 % (0-5); Neutrophil # 6.46 X10^3/uL (2.7-7.7); Neutrophil % 71.1 % (47-70); Platelet Count 362 K/mm3 (150-450); RBC Distribution Width CV 12.2 % (11.6-14.6); RBC Distribution Width SD 42.5 fl (35.1-43.9); Red Blood Count 3.97 M/mm3 (4.2-5.4); White Blood Count 9.1 K/mm3 (4.4-11.0)
[2022-03-26 07:27] LABS: ALB/GLOB Ratio 0.9 RATIO (0.9-2.4); AST(SGOT) 29 U/L (15-37); Alanine Aminotransfer ALT/SGPT 21 U/L (13-56); Alkaline Phosphatase 59 U/L (45-117); Anion Gap 8 (5-15); BUN 12 mg/dL (7-18); BUN/Creat Ratio 12.8 RATIO (10-20); Calcium,Total 8.4 mg/dL (8.5-10.1); Chloride 112 mmol/L (98-107); Creatinine, Serum 0.94 mg/dL (0.55-1.02); EST Glomerular Filtration Rate 60 mL/min (>60); Est Glom Filt Rate - Afr Amer 72 mL/min (>60); Estimated Creatinine Clearance 30.86 ml/min; Globulin 3.4 g/dL (2.2-4.2); Glucose 111 mg/dL (74-106); Magnesium 2.3 mg/dL (1.6-2.6); Potassium 3.9 mmol/L (3.5-5.1); Protein, Total 6.4 g/dL (6.4-8.2); Sodium Level 142 mmol/L (136-145)
[2022-03-26 08:30] VITALS: BP 143/70; PULSE 66; RESP 16; TEMP 37.1; O2SAT 96
[2022-03-26 10:00] VITALS: PULSE 92
--- NOTE | 2022-03-26 10:01 | DCINST_ITS ---
Discharge Instructions Diet Discharge Diet: Low fat / Low cholesterol and 2000 mg Sodium Diet Activity Discharge Activity: Return to Normal Activity Follow Up Care Test Results: Test results from this visit will be discussed in further detail at your follow- up appointment, if applicable. Discharge Plan Admission Admit Date/Time: 03/25/22 15:03 Primary Reason for Your Visit: Acute gastroenteritis Attending Provider: Iva Lloyd Primary Care Provider: Matheus Morales [employer] Providers: Sina Orellana Instructions Additional Instructions / Restrictions: Continue to keep yourself hydrated. Follow-up with your PCP within 1 week. Discharge Orders/Prescriptions Prescriptions: Continued omeprazole 40 MG capsule,delayed release(DR/EC) 20 mg PO DAILY losartan 100 MG tablet 100 mg PO DAILY metoprolol tartrate 25 MG tablet 25 mg PO DAILY pregabalin [Lyrica] 75 MG capsule 25 mg PO BID ferrous sulfate [iron] 325 mg (65 mg iron) Tablet 325 mg PO DAILY oxybutynin chloride 5 mg tablet extended release 24hr 5 mg PO DAILY calcium citrate 200 mg (950 mg) Tablet 400 mg PO BID rosuvastatin [Crestor] 5 mg Tablet 5 mg PO DAILY duloxetine [Cymbalta] 60 mg Capsule,Delayed Release(Dr/Ec) 60 mg PO DAILY Referrals / Follow Up: Matheus Morales Chi, MD [Primary Care Provider] - Within 1 Week Disposition Disposition (needs filled in before D/C Order can be placed): Home, Self Care
--- NOTE | 2022-03-26 10:05 | PCM.DC.SUM ---
Providers Date of Admission: 03/25/22 Date of Discharge: 03/26/22 Primary Care Physician: Dr. Matheus Morales MD Reason For Visit: INTRACTABLE NAUSEA AND VOMITING Diagnosis Discharge Diagnosis (1) Intractable vomiting: Status: Acute Code(s): R11.10 - Vomiting, unspecified Medications at Discharge Home Medications losartan 100 mg tablet 100 mg PO DAILY 07/20/13 metoprolol tartrate 25 mg tablet 25 mg PO DAILY 07/20/13 omeprazole 40 mg capsule,delayed release 20 mg PO DAILY 07/20/13 pregabalin 75 mg capsule (Lyrica) 25 mg PO BID 07/20/13 calcium citrate 200 mg (950 mg) tablet 400 mg PO BID 03/25/22 duloxetine 60 mg capsule,delayed release (Cymbalta) 60 mg PO DAILY 03/25/22 ferrous sulfate 325 mg (65 mg iron) tablet (iron) 325 mg PO DAILY 03/25/22 oxybutynin chloride 5 mg tablet,extended release 24 hr 5 mg PO DAILY 03/25/22 rosuvastatin 5 mg tablet (Crestor) 5 mg PO DAILY 03/25/22 Hospital Course Operations None Procedures None Summary of Care Provided Minutes Spent on Discharge: 35 Hospital Course: 86-year-old with past medical history of hypertension, GERD who presented with intractable nausea and vomiting. Patient stated that her symptoms started when she ate some pizza. Her family also added but did not have any symptoms. She felt very weak and decided to come to the emergency room. In the emergency room, her vitals were stable. She had evidence of hypokalemia on her blood work. CT of the abdomen and pelvis was unremarkable. [facility] and managed symptomatically with IV fluids. Patient received antiemetics. She slowly improved. She tolerated an increase in consistency of her diet. Patient was discharged home to continue hydration. She will follow-up with her primary care doctor within 1 week. Physical Exam Narrative Physical exam: General: Alert, Oriented x3, Cooperative, appeared frail, not pale HEENT: Atraumatic Oral: Moist Mucosa Neck: Supple Lungs: Clear to auscultation Cardiovascular: HS I+II, regular, no murmurs Abdomen: Bowel Sounds Present, Soft, Non Tender Extremities: No edema Skin: No rashes, No breakdown Neurological: Grossly intact Psych/Mental Status: Appropriate Weight / BMI Weight Weight: 62.2 kg Body Mass Index (BMI) 26.7 ABG / Lab / Microbiology Data Result Diagrams: 03/26/22 05:25 03/26/22 05:25 Laboratory: Laboratory Results - last 24 hr 03/26/22 05:25: WBC 9.1, RBC 3.97 L, Hgb 12.1, Hct 37.6, MCV 94.7, MCH 30.5, MCHC 32.2, RDW Std Deviation 42.5, RDW Coeff of Misty 12.2, Plt Count 362, MPV 10.2, Immature Gran % (Auto) 1.000 H, Neut % (Auto) 71.1 H, Lymph % (Auto) 16.0 L, Lane % (Auto) 10.7 H, Eos % (Auto) 0.6, Baso % (Auto) 0.6, Absolute Neuts (auto) 6.5, Absolute Lymphs (auto) 1.45, Nucleated RBC % 0 03/26/22 05:25: Sodium 142, Potassium 3.9, Chloride 112 H, Carbon Dioxide 22.0, Anion Gap 8, BUN 12, Creatinine 0.94, Estim Creat Clear Calc 30.86, Est GFR (MDRD) Af Amer 72, Est GFR (MDRD) Non-Af 60, BUN/Creatinine Ratio 12.8, Glucose 111 H, Calcium 8.4 L, Magnesium 2.3, Total Bilirubin 0.30, AST 29, ALT 21, Alkaline Phosphatase 59, Total Protein 6.4, Albumin 3.0 L, Globulin 3.4, Albumin/Globulin Ratio 0.9 Microbiology: Microbiology 03/24/22 22:35 Nasal Secretion SARS-CoV-2 Antigen (Rapid) - Final D/C Instructions Discharge Diet: Low fat / Low cholesterol and 2000 mg Sodium Diet Meaningful Use Info Meaningful Use Diagnoses (Choose all that apply): None applicable Discharge Plan Admission Admit Date/Time: 03/25/22 15:03 Primary Reason for Your Visit: Acute gastroenteritis Attending Provider: Iva Lloyd Primary Care Provider: Matheus Morales [employer] Providers: Sina Orellana Instructions Additional Instructions / Restrictions: Continue to keep yourself hydrated. Follow-up with your PCP within 1 week. Discharge Orders/Prescriptions Prescriptions: Continued omeprazole 40 MG capsule,delayed release(DR/EC) 20 mg PO DAILY losartan 100 MG tablet 100 mg PO DAILY metoprolol tartrate 25 MG tablet 25 mg PO DAILY pregabalin [Lyrica] 75 MG capsule 25 mg PO BID ferrous sulfate [iron] 325 mg (65 mg iron) Tablet 325 mg PO DAILY oxybutynin chloride 5 mg tablet extended release 24hr 5 mg PO DAILY calcium citrate 200 mg (950 mg) Tablet 400 mg PO BID rosuvastatin [Crestor] 5 mg Tablet 5 mg PO DAILY duloxetine [Cymbalta] 60 mg Capsule,Delayed Release(Dr/Ec) 60 mg PO DAILY Referrals / Follow Up: Matheus Morales Chi, MD [Primary Care Provider] - Within 1 Week Disposition Disposition (needs filled in before D/C Order can be placed): Home, Self Care Charges/Coding Visit Charges Inpatient E&M: 19929 Disch Hosp
[2022-03-26] MEDS: Enoxaparin 30 MG/0.3 ML Syringe SC (10:37)
[2022-03-26] MEDS: Ferrous Sulfate 325 MG Tablet PO (13:07)
[2022-03-26 14:22] VITALS: BP 133/57; PULSE 92; RESP 16; TEMP 36.8; O2SAT 95
--- NOTE | 2022-03-26 14:50 | NURSING ---
Called Daughter Laura explained patient has been discharged and she needs a ride home. Laura coming into get patient.
== END 2022-03-26 16:45 | disposition home or self-care (01) | DRG 392 ==
LOC: ED 03-25 02:56 → MS3 03-25 03:24
PROVIDERS: Admitting Provider Hospitalist; Emergency Provider Emergency Medicine; PCP Family Medicine Geriatric Medicine; Visit Provider Internal Medicine
DX: R11.2 Nausea with vomiting, unspecified (principal); E87.1 Hypo-osmolality and hyponatremia; E86.0 Dehydration; E87.6 Hypokalemia; I10 Essential (primary) hypertension; K21.9 Gastro-esophageal reflux disease without esophagitis; Z79.899 Other long term (current) drug therapy; Z90.49 Acquired absence of other specified parts of digestive tract; Z20.822 Contact with and (suspected) exposure to COVID-19
CPT/HCPCS: 36415; 74176; 80048; 80053; 81001; 83735; 84484; 85025; 87811; 93005; 99285; J7030; A4216; J2405

== ENCOUNTER 2022-11-03 10:30 | Emergency (ER) | payer MEDICARE, BC, SELFPAY ==
[2022-11-03 10:31] VITALS: BP 142/75; PULSE 95; RESP 16; TEMP 36.8; O2SAT 99; BMI 25.7
--- NOTE | 2022-11-03 10:56 | EKG12_ITS ---
Test Reason : GENERAL Blood Pressure : / mmHG Vent. Rate : 090 BPM Atrial Rate : 090 BPM P-R Int : 198 ms QRS Dur : 086 ms QT Int : 334 ms P-R-T Axes : 053 012 040 degrees QTc Int : 408 ms Normal sinus rhythm Normal ECG Confirmed by SWATI BALDERAS ([id number]), editor index TAI REYES ([id number]) on 11/07/2022 8:02:22 AM Referred By: Confirmed By:SWATI BALDERAS
--- NOTE | 2022-11-03 10:58 | EX.ED.DYSGE1 ---
HPI History of Present Illness Chief Complaint: Weakness Informant: patient and family (Daughter) Onset/Context/Timing Onset: Days (Several) Context: Gradual Onset Timing: Continuous Current Severity: Moderate Maximum Severity: Moderate Narrative Narrative: Patient has been feeling weak for several days. She has noticed swelling in her hands and her toes, she has had a poor appetite for the last 3 days, she states she was nauseated a little this morning but she really has not had any nausea the past few days her vomiting, she just states nothing tasted good and she did not feel like eating. She has been urinating. She has had some urinary urgency when I asked her about a but otherwise she had no urinary complaints, no dysuria. No hematuria. No diarrhea, bright red blood per rectum, melena, abdominal pain, chest pain, or shortness of breath. I heard her cough as I entered the room, but she states she does not feel like she really has had a cough lately. She had a mild headache last night but not this morning and no sore throat. No known sick contacts. She states he has a history of arthritis, mostly affects her knees and her legs, but she states when doing puzzles lately she has noticed soreness in her fingers as well where they are swollen now. She cannot recall any other recent repetitive activities such as knitting, typing, etc. with her fingers/hands. [facility] Medical History Chronic knee pain GERD (gastroesophageal reflux disease) Hypertension Home Medications losartan 100 mg tablet 100 mg PO DAILY 07/20/13 [History Last Taken Unknown] metoprolol tartrate 25 mg tablet 25 mg PO QHS 07/20/13 [History Last Taken Unknown] pregabalin 75 mg capsule (Lyrica) 50 mg PO BID 07/20/13 [History Last Taken Unknown] calcium citrate 200 mg (950 mg) tablet 400 mg PO BID 03/25/22 [History Last Taken Unknown] duloxetine 60 mg capsule,delayed release (Cymbalta) 60 mg PO DAILY 03/25/22 [History Last Taken Unknown] oxybutynin chloride 5 mg tablet,extended release 24 hr 5 mg PO DAILY 03/25/22 [History Last Taken Unknown] rosuvastatin 5 mg tablet (Crestor) 5 mg PO DAILY 03/25/22 [History Last Taken Unknown] acetaminophen 650 mg tablet 650 mg PO BID 11/03/22 [History Last Taken Unknown] ferrous sulfate 325 mg (65 mg iron) tablet (iron) 325 mg PO BID #60 tabs 11/03/22 [Rx Last Taken Unknown] qfifgnub-rny-pcvuh acid 0.4 mg-lycopene 300 mcg-lutein 250 mcg tablet (Centrum Silver) 1 tab PO DAILY 11/03/22 [History Last Taken Unknown] omeprazole 40 mg capsule,delayed release 40 mg PO BID #60 caps 11/03/22 [Rx Last Taken Unknown] sucralfate 1 gram tablet (Carafate) 1 g PO TID #30 tabs 11/03/22 [Rx Last Taken Unknown] Allergy/AdvReac Type Severity Reaction Status Date / Time No Known Allergies Allergy Verified 11/03/22 10:31 Family History Other Arthritis GERD (gastroesophageal reflux disease) Surgical History History of cholecystectomy History of nephrectomy, right History of surgery on lower extremity Social History Smoking Status: Never smoker ROS ROS ED Constitutional Constitutional ED: Reports weakness; Denies chills or fever(s) Eyes Eyes: Denies change in vision or diplopia ENT ENT ED: Denies ear pain, rhinorrhea or sore throat Cardiovascular Cardiovascular: Denies chest pain, palpitations or racing heartbeat Respiratory/Chest Respiratory/Chest: Reports as per HPI; Denies cough or dyspnea Gastrointestinal Gastrointestinal: Reports nausea; Denies abdominal pain, diarrhea, hematochezia, melena or vomiting Genitourinary Genitourinary ED: Reports urinary urgency; Denies dysuria or hematuria Musculoskeletal Musculoskeletal: Reports arthralgias and other Details: swelling in hands/fingers ; Denies back pain or neck pain Integumentary Denies abscess or rash Neurologic Neurologic: Reports headache(s); Denies paresthesias or weakness Psychiatric Psychiatric: Denies anxiety or suicidal thoughts EXAM Physical Exam Const Vital Signs: 11/03/22 10:31 11/03/22 10:38 11/03/22 12:30 Temperature 98.2 F Temperature Source Oral Pulse Rate 95 92 Respiratory Rate 16 20 H Respiratory Pattern Normal Blood Pressure 142/75 H 115/62 Blood Pressure Mean 97 79 Pulse Ox 99 98 Oxygen Delivery Method Room Air Room Air 11/03/22 16:00 Temperature 98.1 F Temperature Source Oral Pulse Rate 113 H Respiratory Rate 20 H Respiratory Pattern Blood Pressure 147/71 H Blood Pressure Mean 96 Pulse Ox 98 Oxygen Delivery Method Positive well nourished and well developed Constitutional Narrative: well-appearing General Appearance ED: well developed and NAD HEENT Reports moist mucous membranes normocephalic and atraumatic Eyes PERRL and EOMs intact bilaterally Neck full ROM, no lymphadenopathy, supple and no JVD Chest Wall inspection of chest normal and palpation of chest normal Resp normal respiratory effort and clear to auscultation bilaterally Cardio regular rate, regular rhythm and no murmurs GI non-tender and non-distended Auscultation: normoactive bowel sounds Palpation: soft Back/Spine no CVA tenderness General Back: other FROM Extremity normal to inspection Extremity Narrative: No edema in lower extremities objectively General Extremety ED: Yes edema; Negative for pulses abnormal or tenderness General Extremity: edema bilateral upper extremity moderate (Hands and fingers, symmetrically. No sign of infection/cellulitis or wound.); Negative for pulses abnormal Neuro oriented x3, CN's II-XII intact bilaterally and no sensory deficits noted Sensorium / Orientation: awake and alert Motor Exam: strength 5/5 throughout Psych mental status grossly normal Skin no rashes or lesions noted and no wounds MDM MDM MDM Narrative Medical decision making narrative: Give the patient some gentle IV fluids for what sounded like mild dehydration while we performed work-up for weakness in an elderly female. Other than mild dehydration, my interpretation of all of the labs is that she is anemic at hemoglobin of 8.8, which is down from a level of 12.1, however that was about 6 or 7 months ago. She states in the interim, within the last couple months, she had a blood draw from a nurse practitioner showing that she was anemic but she does not know to what degree, and as a result she was placed on iron supplementation. Her red blood cells are normochromic. She states she admits that she has been feeling weak and tired for some time, it is just worse in the past week. Her urine showing any sign of acute infection, chest x-ray 2 views of my interpretation negative for pneumonia, radiology in agreement, her EKG is normal with a troponin within normal limits, she does have a mild nonspecific leukocytosis of unknown etiology/significance given that she does not have any clinical evidence of infection nor ancillary. Given all of this, I recommended a Hemoccult check. She was agreeable. Rectal exam was performed by myself, nontender, no blood, light brown stool, Hemoccult is positive. Patient states she had a colonoscopy remotely but no other scopes, she has had no nausea or vomiting or known history of ulcers, and she has been on omeprazole 20 mg once daily that she is compliant with. She is ambulatory in the ED without difficulty, with some assistance using her cane. She does not feel lightheaded, and she has developed no tachycardia/orthostasis. I discussed with GI Dr. Tripp. He agrees that it would be reasonable to have the patient DC home and follow-up closely as an outpatient with him and PCP for repeat blood count. He recommends increasing her omeprazole 20 mg daily to 40 mg twice daily given her normal renal function, and Carafate 1 g 3 times daily for the next 10 days. I discussed this with her and her daughter, she is comfortable with that plan, also discussed with Dr. Amaro covering for MADELEINE Eddy. Lab Data Attestation: I reviewed the patient's lab results. Labs: Laboratory Results - last 24 hr 11/03/22 11/03/22 11/03/22 10:46 10:46 12:20 WBC 13.3 H RBC 3.15 L Hgb 8.8 L Hct 28.2 L MCV 89.5 MCH 27.9 MCHC 31.2 L RDW Std Deviation 43.9 RDW Coeff of Misty 13.4 Plt Count 581 H MPV 9.0 Immature Gran % (Auto) 1.700 H Neut % (Auto) 79.8 H Lymph % (Auto) 7.3 L [place] % (Auto) 9.8 Eos % (Auto) 0.8 Baso % (Auto) 0.6 Absolute Neuts (auto) 10.6 H Absolute Lymphs (auto) 0.97 Nucleated RBC % 0 Sodium 133 L Potassium 4.5 Chloride 106 Carbon Dioxide 21.0 Anion Gap 6 BUN 21 H Creatinine 0.90 Estim Creat Clear Calc 31.63 Est GFR (MDRD) Af Amer 76 Est GFR (MDRD) Non-Af 63 BUN/Creatinine Ratio 23.3 H Glucose 123 H Calcium 9.5 Total Bilirubin 0.20 AST 12 L ALT 14 Alkaline Phosphatase 81 Troponin I High Sens 20 Total Protein 7.1 Albumin 2.5 L Globulin 4.6 H Albumin/Globulin Ratio 0.5 L Urine Color Yellow Urine Clarity Sl. Cloudy Urine pH 6.0 Ur Specific [place] 1.010 Urine Protein Negative Urine Glucose (UA) Normal Urine Ketones Negative Urine Occult Blood 10 H Urine Nitrite Negative Urine Bilirubin Negative Urine Urobilinogen Normal Ur Leukocyte Esterase Negative Urine RBC 0-5 SEEN Urine WBC 0 SEEN Ur Squamous Epith Cells 0-5 SEEN Urine Bacteria 0 SEEN Urine Mucus 0 SEEN Radiography Diagnostic Testing: Clinical Impression(s) from Imaging Studies Chest X-Ray 11/03/22 11:15 IMPRESSION: Degenerative changes, as described above. No demonstrated acute cardiopulmonary process. Electronically Signed: Yosvany Dawn MD at 12:01 EDT Reading Location ID and State: [id number] [place] [address] , Service support , Rhythm Strip Rhythm Strip: Sinus Rhythm Rate: 90 Ectopy: None EKG Initial EKG: Attestation: I personally reviewed and interpreted this EKG as follows: Interpretation: Sinus Rhythm and No Acute Injury Pattern Comments: Rate 90. Normal EKG. Prior EKG tracings: available for review Prior: Unchanged Discharge Plan Triage Chief Complaint: Weakness ED Provider: Yosvany Cope Dx/Rx/DC Orders Clinical Impression: Chronic blood loss anemia, Occult GI bleeding Instructions: Upper GI Endoscopy, ED Upper GI Bleeding (Stable) Prescriptions: New sucralfate [Carafate] 1 gram tablet 1 g PO TID Qty: 30 0RF Continued losartan 100 MG tablet 100 mg PO DAILY metoprolol tartrate 25 MG tablet 25 mg PO QHS pregabalin [Lyrica] 75 MG capsule 50 mg PO BID oxybutynin chloride 5 mg tablet extended release 24hr 5 mg PO DAILY calcium citrate 200 mg (950 mg) Tablet 400 mg PO BID rosuvastatin [Crestor] 5 mg Tablet 5 mg PO DAILY duloxetine [Cymbalta] 60 mg Capsule,Delayed Release(Dr/Ec) 60 mg PO DAILY acetaminophen 650 mg Tablet 650 mg PO BID Centrum Silver 0.4 mg-300 mcg- 250 mcg tablet 1 tab PO DAILY Changed omeprazole 40 MG capsule,delayed release(DR/EC) 40 mg PO BID Qty: 60 0RF ferrous sulfate [iron] 325 mg (65 mg iron) Tablet 325 mg PO BID Qty: 60 0RF Primary Care Provider: Cordelia Eddy NP Referrals: Cordelia Eddy NP, [employer] [Primary Care Provider] - (after the weekend; call for appt day/time) Disposition Disposition: Home, Self Care
[2022-11-03 11:11] LABS: Absolute Lymphocyte Count 0.97 X10^3/uL (0.83-4.51); Absolute Neutrophil Count 10.6 X10^3/uL (2.0-7.7); Basophil# 0.08 X10^3/uL; Basophil% 0.6 % (0-1); Eosinophils% 0.8 % (0-5); Hematocrit 28.2 % (37-47); Hemoglobin 8.8 g/dL (12.0-15.0); Lymphocyte # 0.97 X10^3/ul (0.83-4.51); Lymphocyte % 7.3 % (19-41); Mean Corp Hgb Conc 31.2 g/dL (32-36); Mean Corpuscular Hgb 27.9 pg (27.0-32.0); Mean Corpuscular Volume 89.5 fL (81-99); Monocyte% 9.8 % (0-10); NRBC Flagged by Analyzer 0 % (0-5); Neutrophil # 10.63 X10^3/uL (2.7-7.7); Neutrophil % 79.8 % (47-70); Platelet Count 581 K/mm3 (150-450); RBC Distribution Width CV 13.4 % (11.6-14.6); RBC Distribution Width SD 43.9 fl (35.1-43.9); Red Blood Count 3.15 M/mm3 (4.2-5.4); White Blood Count 13.3 K/mm3 (4.4-11.0)
--- NOTE | 2022-11-03 11:15 | RAD_ITS ---
STUDY: X-RAY CHEST REASON FOR EXAM: Female, 87 years old. Weakness, mild cough TECHNIQUE: Frontal and lateral views of the chest. COMPARISON: None. FINDINGS: There are monitoring devices. The lungs are clear and expanded. There is no demonstrated pleural abnormality. Normal size heart. Normal mediastinum and frederic. Normal visualized pulmonary arteries. There is atherosclerotic tortuosity of the aortic arch and descending thoracic aorta. There is demineralization of the osseous structures. Normal visualized ribs, clavicles, and shoulders. There is no demonstrated abnormality of the visualized soft tissue structures of the upper abdomen. RAD/Chest PA and Lateral IMPRESSION: Degenerative changes, as described above. No demonstrated acute cardiopulmonary process. Electronically Signed: Yosvany Dawn MD at 12:01 EDT ,
[2022-11-03 11:28] LABS: ALB/GLOB Ratio 0.5 RATIO (0.9-2.4); AST(SGOT) 12 U/L (15-37); Alanine Aminotransfer ALT/SGPT 14 U/L (13-56); Albumin, Serum 2.5 g/dL (3.2-5.0); Alkaline Phosphatase 81 U/L (45-117); Anion Gap 6 (5-15); BUN 21 mg/dL (7-18); BUN/Creat Ratio 23.3 RATIO (10-20); Calcium,Total 9.5 mg/dL (8.5-10.1); Chloride 106 mmol/L (98-107); EST Glomerular Filtration Rate 63 mL/min (>60); Est Glom Filt Rate - Afr Amer 76 mL/min (>60); Estimated Creatinine Clearance 31.63 ml/min; Globulin 4.6 g/dL (2.2-4.2); Glucose 123 mg/dL (74-106); Potassium 4.5 mmol/L (3.5-5.1); Protein, Total 7.1 g/dL (6.4-8.2); Sodium Level 133 mmol/L (136-145); Troponin-I HS 20 pg/mL (3.0-54.0)
[2022-11-03] MEDS: 0.9% Normal Saline 1,000 ML 150 ML IV (11:46)
[2022-11-03 12:25] LABS: Bacteria 0 SEEN /hpf (None Seen); Mucous, Urine 0 SEEN /hpf (<or=2+); White Blood Cells 0 SEEN /hpf (0-5)
[2022-11-03 12:27] LABS: Color, Urine Yellow (Yellow); Glucose, Dipstick Normal (Normal); Ketone-Dipstick Negative (Negative); Leukocyte Esterase-Dipstick Negative /ul (Negative); Nitrite-Dipstick Negative (Negative); Occult Blood-Urine 10 /ul (Negative); Protein-Dipstick Negative (Negative); Urine Bilirubin Dipstick Negative (Negative); Urine Clarity Sl. Cloudy (Clear); Urine Urobilinogen Normal (Normal)
[2022-11-03 12:30] VITALS: BP 115/62; PULSE 92; RESP 20; O2SAT 98
[2022-11-03 12:39] LABS: Red Blood Cells-Urine 0-5 SEEN /hpf (0-5); Squamous Epithelial Cells - UA 0-5 SEEN /hpf (5-10)
[2022-11-03 16:00] VITALS: BP 147/71; PULSE 113; RESP 20; TEMP 36.7; O2SAT 98
== END 2022-11-03 16:37 | disposition home or self-care (01) ==
PROVIDERS: Emergency Provider Emergency Medicine; PCP Nurse Practitioner Primary Care; Visit Provider Emergency Medicine
DX: D50.0 Iron deficiency anemia secondary to blood loss (chronic) (principal); K92.2 Gastrointestinal hemorrhage, unspecified; I10 Essential (primary) hypertension; E86.0 Dehydration; K21.9 Gastro-esophageal reflux disease without esophagitis; Z79.899 Other long term (current) drug therapy; R35.0 Frequency of micturition; R51.9 Headache, unspecified
CPT/HCPCS: 71046; 80053; 81001; 82274; 84484; 85025; 87428; 93005; 96360; 96361; 99285; J7030; A4216